=== PATIENT | female | born 1975 | race Caucasian/White ===

== ENCOUNTER 2017-01-04 18:35 | Emergency (ER) | payer OTHER ==
[2017-01-04 18:36] VITALS: BMI 30.6
[2017-01-04 19:30] LABS: HCG,QUALITATIVE URINE NEGATIVE (NEGATIVE)
[2017-01-04 19:33] LABS: SQUAMOUS EPITHIAL 4 /hpf (0-5); URINE BILIRUBIN NEGATIVE (NEGATIVE); URINE BLOOD 1+ (NEGATIVE); URINE CLARITY Clear (Clear); URINE COLOR Yellow (YELLOW); URINE GLUCOSE (UA) NORMAL (Normal); URINE LEUKOCYTE ESTERASE NEG Leu/uL (Negative); URINE NITRATE NEGATIVE (NEGATIVE); URINE PROTEIN NEGATIVE (NEGATIVE); URINE UROBILINOGEN NORMAL mg/dL (0.2-1.0)
[2017-01-04] MEDS ORDERED: Sodium Chloride 0.9% 1,000 ML IV ONE (19:44)
[2017-01-04] MEDS ORDERED: Iohexol 240 (50 ml) PO ONE (19:45)
--- NOTE | 2017-01-04 20:02 | C.PDOC ---
History Of Present Illness 41 year old female who presents to the ER with a complaint of intermittent abdominal pain that radiates to the back for the past 2 weeks, associated with dysuria. Patient denies vomiting, diarrhea, or fever. Chief Complaint (Nursing): Abdominal Pain History Per: Patient History/Exam Limitations: no limitations Onset/Duration Of Symptoms: Days Current Symptoms Are (Timing): Still Present Location Of Pain/Discomfort: RLQ Radiation Of Pain To:: None Quality Of Discomfort: Unable To Describe Associated Symptoms: Urinary Symptoms. denies: Fever, Chills, Vomiting, Diarrhea Exacerbating Factors: None Alleviating Factors: None Recent travel outside of the [place]: No Abnormal Vaginal Bleeding: No Past Medical History Reviewed: Historical Data, Nursing Documentation, Vital Signs Vital Signs: Last Vital Signs Temp 98.1 F 01/04/17 22:45 Pulse 60 01/04/17 22:45 Resp 16 01/04/17 22:45 BP 102/60 01/04/17 22:45 Pulse Ox 98 01/04/17 22:45 - Medical History PMH: Kidney Stones, Chronic Kidney Disease Surgical History: No Surg Hx - [facility] Procedures MANUAL ASSIST TIBURCIOIV NEC (05/23/13) Family History: States: Unknown Family Hx - Social History Hx Tobacco Use: No Hx Alcohol Use: No Hx Substance Use: No - Immunization History Hx Tetanus Toxoid Vaccination: Yes Hx Influenza Vaccination: No Hx Pneumococcal Vaccination: No Review Of Systems Constitutional: Negative for: Fever, Chills Gastrointestinal: Positive for: Abdominal Pain. Negative for: Vomiting, Diarrhea Genitourinary: Positive for: Dysuria Musculoskeletal: Positive for: Back Pain Physical Exam - Physical Exam Appears: Non-toxic Skin: Normal Color, Warm, Dry Head: Atraumatic, Normacephalic Oral Mucosa: Moist Chest: Symmetrical, No Tenderness Cardiovascular: Rhythm Regular, No Murmur Respiratory: Normal Breath Sounds, No Rales, No Rhonchi, No Wheezing Gastrointestinal/Abdominal: Soft, Tenderness (RLQ) Neurological/Psych: Oriented x3, Normal Speech, Normal Cognition ED Course And Treatment - Laboratory Results Result Diagrams: 01/04/17 20:17 01/04/17 20:17 O2 Sat by Pulse Oximetry: 99 (Room air) Pulse Ox Interpretation: Normal - CT Scan/US CT abd/pel Other Rad Studies (CT/US): Read By Radiologist, Radiology Report Reviewed CT/US Interpretation: EXAM: CT Abdomen and Pelvis With Intravenous Contrast. CLINICAL HISTORY: 41 years old, female; Pain; Abdominal pain; Localized; Right lower quadrant (rlq); Additional info: Abd pain. TECHNIQUE: Axial computed tomography images of the abdomen and pelvis with intravenous contrast. This CT. exam was performed using one or more of the following dose reduction techniques: automated. exposure control, adjustment of the mA and/or kV according to patient size, and/or use of iterative. reconstruction technique. Coronal and sagittal reformatted images were created and reviewed. CONTRAST: 100 mL of visipaque 320 administered intravenously. COMPARISON: CT - ABD PELVIS W/O PO OR IV CONT 04/23/2015 11:12:40 PM. FINDINGS: Lower thorax: There is minimal bibasilar atelectasis. The heart is borderline in size. Small hiatal. hernia. ABDOMEN: Liver: There are no focal liver lesions present. There is a diffuse decrease in hepatic parenchymal. density, consistent with fatty infiltration. Gallbladder and bile ducts: The gallbladder is contracted but otherwise normal. No calcified stones. No ductal dilation. Pancreas: The pancreas is normal. No ductal dilation. Spleen: The spleen is normal. Adrenals : The adrenal glands are normal. Kidneys and ureters: The kidneys are normal. No hydronephrosis. Stomach and bowel: The stomach is normal. Colonic constipation is present. There is no evidence. of intestinal obstruction. No mucosal thickening. Appendix: A normal appendix is identified. PELVIS: Bladder: The bladder is normal. Reproductive: There is a partially calcified fibroid within the right side of the uterus. The uterus. otherwise appears unremarkable. The ovaries are normal. ABDOMEN and PELVIS: Intraperitoneal space: There is no evidence of free intraperitoneal fluid. There is no free. intraperitoneal air. Bones/joints: No acute fracture. No dislocation. Soft tissues: Unremarkable. Vasculature: The aorta is normal. No abdominal aortic aneurysm. Lymph nodes: There is no evidence of lymphadenopathy. IMPRESSION: 1. No acute findings. 2. Normal appendix. 3. Additional incidental and/or chronic findings as described. Progress Note: CT abd/pel, blood work, and urinalysis ordered. IV fluids admininstered. Disposition Counseled Patient/Family Regarding: Diagnosis - Disposition Referrals: [facility] at [facility] [Outside] Disposition: HOME/ ROUTINE Disposition Time: 22:27 Condition: STABLE Prescriptions: Ibuprofen [Motrin] 1 tab PO TID PRN #30 tab PRN Reason: Pain Instructions: Uterine Fibroids (ED), Abdominal Pain (ED) Forms: [facility] (Danish), Gen Discharge Inst Burkinan Print Language: YI - POA Present On Arrival: None - Clinical Impression Clinical Impression: Abdominal pain, Uterine fibroid - Scribe Statement The provider has reviewed the documentation as recorded by the Scribmary Early All medical record entries made by the Chaniibmary were at my direction and personally dictated by me. I have reviewed the chart and agree that the record accurately reflects my personal performance of the history, physical exam, medical decision making, and the department course for this patient. I have also personally directed, reviewed, and agree with the discharge instructions and disposition.
[2017-01-04] MEDS ORDERED: Sodium Chloride 0.9% 1,000 ML ONE (20:20)
[2017-01-04] MEDS ORDERED: Iohexol 240 (50 ml) ONE (20:20)
[2017-01-04 20:21] LABS: BASO # 0.1 K/uL (0.0-0.2); BASO % 0.8 % (0.0-2.0); EOS # 0.2 K/uL (0.0-0.7); EOS % 3.3 % (0.0-4.0); HEMOGLOBIN 11.8 g/dL (11.0-16.0); LYMPH # 1.6 K/uL (1.0-4.3); LYMPH % 23.9 % (20.0-40.0); MEAN CELL VOLUME 85.7 fL (81.0-99.0); MEAN CORPUSCULAR HEMOGLOBIN 28.9 pg (27.0-31.0); MEAN CORPUSCULAR HGB CONC 33.7 g/dL (33.0-37.0); MEAN PLATELET VOLUME 9.8 fL (7.2-11.7); MONO # 0.5 K/uL (0.0-0.8); MONO % 7.8 % (0.0-10.0); NEUT # 4.3 K/uL (1.8-7.0); NEUT % 64.2 % (50.0-75.0); RBC 4.07 Mil/uL (3.80-5.20); RED CELL DISTRIBUTION WIDTH 14.8 % (11.5-14.5); WHITE BLOOD COUNT 6.7 K/uL (4.8-10.8)
[2017-01-04 20:29] LABS: ALBUMIN 3.5 g/dL (3.5-5.0)
[2017-01-04 20:32] LABS: ALB/GLOB RATIO 1.2 (1.0-2.1); ALT/SGPT 36 U/L (9-52); AST/SGOT 23 U/L (14-36); BLOOD UREA NITROGEN 11 mg/dL (7-17); GFR AFRICAN-AMERICAN > 60; GFR NON-AFRICAN AMERICAN > 60; LIPASE 56 U/L (23-300)
[2017-01-04 20:33] LABS: CALCIUM 8.4 mg/dl (8.6-10.4)
[2017-01-04 20:55] VITALS: RESP 16
[2017-01-04] MEDS ORDERED: Iodixanol 320 MG/ML 100 ML BOTTLE IV ONE (21:24)
--- NOTE | 2017-01-04 22:19 | CT ---
EXAM: CT Abdomen and Pelvis With Intravenous Contrast CLINICAL HISTORY: 41 years old, female; Pain; Abdominal pain; Localized; Right lower quadrant (rlq); Additional info: Abd pain TECHNIQUE: Axial computed tomography images of the abdomen and pelvis with intravenous contrast. This CT exam was performed using one or more of the following dose reduction techniques: automated exposure control, adjustment of the mA and/or kV according to patient size, and/or use of iterative reconstruction technique. Coronal and sagittal reformatted images were created and reviewed. CONTRAST: 100 mL of visipaque 320 administered intravenously. COMPARISON: CT - ABD PELVIS W/O PO OR IV CONT 04/23/2015 11:12:40 PM FINDINGS: Lower thorax: There is minimal bibasilar atelectasis. The heart is borderline in size. Small hiatal hernia. ABDOMEN: Liver: There are no focal liver lesions present. There is a diffuse decrease in hepatic parenchymal density, consistent with fatty infiltration. Gallbladder and bile ducts: The gallbladder is contracted but otherwise normal. No calcified stones. No ductal dilation. Pancreas: The pancreas is normal. No ductal dilation. Spleen: The spleen is normal. Adrenals: The adrenal glands are normal. Kidneys and ureters: The kidneys are normal. No hydronephrosis. Stomach and bowel: The stomach is normal. Colonic constipation is present. There is no evidence of intestinal obstruction. No mucosal thickening. Appendix: A normal appendix is identified. PELVIS: Bladder: The bladder is normal. Reproductive: There is a partially calcified fibroid within the right side of the uterus. The uterus otherwise appears unremarkable. The ovaries are normal. ABDOMEN and PELVIS: Intraperitoneal space: There is no evidence of free intraperitoneal fluid. There is no free intraperitoneal air. Bones/joints: No acute fracture. No dislocation. Soft tissues: Unremarkable. Vasculature: The aorta is normal. No abdominal aortic aneurysm. Lymph nodes: There is no evidence of lymphadenopathy. IMPRESSION: 1. No acute findings. 2. Normal appendix. 3. Additional incidental and/or chronic findings as described.
[2017-01-04 22:46] VITALS: BP 102/60; PULSE 60; TEMP 98.1
[2017-01-05 00:01] VITALS: O2SAT 99
== END 2017-01-04 22:53 | disposition home or self-care (01) ==
LOC: C.ER 18:35
DX: D25.9 Leiomyoma of uterus, unspecified (principal); R10.9 Unspecified abdominal pain
CPT/HCPCS: 74177; 80053; 81001; 83690; 84703; 85025; 96360; 96361; 99284; J7040; Q9966; Q9967

== ENCOUNTER 2017-01-29 17:39 | Emergency (ER) | payer OTHER ==
[2017-01-29 17:39] VITALS: BMI 30.6
[2017-01-29] MEDS ORDERED: Iohexol 240 (50 ml) PO ONE (18:22)
--- NOTE | 2017-01-29 18:35 | C.PDOC ---
History Of Present Illness 41 y/o female who presents to the ED complaining of right groin pain, ongoing for months but progressively worsening. Seen here on 01/04 for the same pain and had CT Abdomen/Pelvis that showed no acute disease. Patient was discharged and has been taking Tylenol for pain, with minimal relief. Pain worsens when she is standing for an extended time, and radiates down her leg. Now reports feeling nauseated. Denies diarrhea, vomiting, change in appetite, and bowel habits. States having occasional discomfort on urination, no foul-smelling urine. PMD: Unknown Time Seen by Provider: 01/29/17 17:52 Chief Complaint (Nursing): Abdominal Pain History Per: Patient History/Exam Limitations: no limitations Onset/Duration Of Symptoms: Days (x months) Current Symptoms Are (Timing): Worse Associated Symptoms: Nausea Past Medical History Reviewed: Historical Data, Nursing Documentation, Vital Signs Vital Signs: Last Vital Signs Temp 98.4 F 01/29/17 17:46 Pulse 59 L 01/29/17 17:46 Resp 15 01/29/17 17:46 BP 102/64 01/29/17 17:46 Pulse Ox 99 01/29/17 20:54 - Medical History PMH: Kidney Stones, Chronic Kidney Disease - [facility] Procedures MANUAL ASSIST DELIV NEC (05/23/13) Family History: States: Unknown Family Hx - Social History Hx Tobacco Use: No Hx Alcohol Use: No Hx Substance Use: No - Immunization History Hx Tetanus Toxoid Vaccination: Yes Hx Influenza Vaccination: No Hx Pneumococcal Vaccination: No Review Of Systems Except As Marked, All Systems Reviewed And Found Negative. Gastrointestinal: Positive for: Nausea, Other (Right groin pain, radiating down leg). Negative for: Vomiting (or change in appetite), Diarrhea, Constipation Genitourinary: Positive for: Other (occasional discomfort with urination) Physical Exam - Physical Exam Appears: Non-toxic, No Acute Distress Skin: Normal Color, Warm, Dry Head: Atraumatic, Normacephalic Eye(s): bilateral: Normal Inspection, PERRL, EOMI Oral Mucosa: Moist Neck: Normal ROM Chest: Symmetrical Cardiovascular: Rhythm Regular, No Murmur Respiratory: Normal Breath Sounds, No Accessory Muscle Use Gastrointestinal/Abdominal: Bowel Sounds (normal), Soft, Tenderness, Other ( Small hernia, very tender, in right inguinal area) Back: Normal Inspection, No Vertebral Tenderness Extremity: Bilateral: Atraumatic, Normal ROM Neurological/Psych: Oriented x3, Normal Speech ED Course And Treatment - Laboratory Results Result Diagrams: 01/29/17 18:38 01/29/17 18:38 Lab Interpretation: Normal O2 Sat by Pulse Oximetry: 99 (RA) Pulse Ox Interpretation: Normal Medical Decision Making Medical Decision Making: Time: 18:21 Plan: --CMP --CBC --Iohexol 50 ml IV --Beta HCG Quant --Urinalysis --Pending CT Pelvis w/ PO & IV contrast --Reevaluation Time: 20:42 CT Pelvis w/ PO & IV contrast FINDINGS: Bowel: There is a nonobstructed bowel gas pattern in the pelvis. Ileocecal region is unremarkable. Appendix and terminal ileum are unremarkable. There is sigmoid diverticulosis Appendix: See stomach and bowel Intraperitoneal space: There is no free air or free fluid. Bladder: unremarkable Reproductive: Uterus is anteflexed. There calcified uterine fibroids. There is a 2.4 cm dominant follicle in the right adnexa. Left adnexa is unremarkable. Bones/joints: There are no acute osseous abnormalities Soft tissues: There is a fat containing right inguinal hernia. There is no inflammation in herniated fat. Vasculature: Vascular structures are unremarkable. Lymph nodes: There is no pathologic adenopathy. IMPRESSION: Small fat-containing right inguinal hernia without inflammation; no appendicitis or diverticulitis; fibroid uterus and the colon dominant follicle in the right ovary Disposition Counseled Patient/Family Regarding: Studies Performed, Diagnosis, Need For Followup - Disposition Referrals: [facility] at [facility] [Outside] Disposition: HOME/ ROUTINE Disposition Time: 20:58 Condition: STABLE Instructions: Inguinal Hernia (ED) Forms: [employer] (Nigerien) Print Language: MACEDONIAN - Clinical Impression Clinical Impression: Inguinal hernia - Scribe Statement The provider has reviewed the documentation as recorded by the Scribe Bridget Doherty All medical record entries made by the Chaniibe were at my direction and personally dictated by me. I have reviewed the chart and agree that the record accurately reflects my personal performance of the history, physical exam, medical decision making, and the department course for this patient. I have also personally directed, reviewed, and agree with the discharge instructions and disposition.
[2017-01-29 18:42] LABS: BASO # 0.1 K/uL (0.0-0.2); BASO % 1.1 % (0.0-2.0); EOS # 0.3 K/uL (0.0-0.7); EOS % 3.8 % (0.0-4.0); HEMATOCRIT 37.1 % (34.0-47.0); LYMPH % 30.2 % (20.0-40.0); MEAN CELL VOLUME 85.6 fL (81.0-99.0); MEAN CORPUSCULAR HEMOGLOBIN 28.8 pg (27.0-31.0); MEAN CORPUSCULAR HGB CONC 33.6 g/dL (33.0-37.0); MEAN PLATELET VOLUME 9.8 fL (7.2-11.7); MONO # 0.5 K/uL (0.0-0.8); MONO % 6.9 % (0.0-10.0); NRBC % 0.1 % (0.0-2.0); RED CELL DISTRIBUTION WIDTH 14.2 % (11.5-14.5); WHITE BLOOD COUNT 6.7 K/uL (4.8-10.8)
[2017-01-29 18:44] VITALS: O2SAT 99
[2017-01-29 18:55] LABS: CHLORIDE 103 mmol/L (98-107); POTASSIUM 3.4 mmol/L (3.6-5.2); SODIUM 141 mmol/L (132-148)
[2017-01-29 18:57] LABS: AST/SGOT 19 U/L (14-36); BILIRUBIN,TOTAL 0.4 mg/dL (0.2-1.3); CARBON DIOXIDE 25 mmol/L (22-30); GFR AFRICAN-AMERICAN > 60
[2017-01-29 18:58] LABS: ALB/GLOB RATIO 1.1 (1.0-2.1); ALKALINE PHOSPHATASE 69 U/L (38-126); ALT/SGPT 28 U/L (9-52); BLOOD UREA NITROGEN 10 mg/dL (7-17); CALCIUM 8.7 mg/dl (8.6-10.4); GLUCOSE,RANDOM 81 mg/dL (65-105); TOTAL PROTEIN 6.8 g/dL (6.3-8.3)
[2017-01-29 18:59] LABS: RBC URINE 7 /hpf (0-3); URINE BILIRUBIN NEGATIVE (NEGATIVE); URINE BLOOD 2+ (NEGATIVE); URINE COLOR Yellow (YELLOW); URINE GLUCOSE (UA) NORMAL (Normal); URINE KETONE NEGATIVE (NEGATIVE); URINE LEUKOCYTE ESTERASE NEG Leu/uL (Negative); URINE PROTEIN NEGATIVE (NEGATIVE); URINE UROBILINOGEN NORMAL mg/dL (0.2-1.0); WBC URINE 2 /hpf (0-5)
[2017-01-29] MEDS ORDERED: Iodixanol 320 MG/ML 100 ML BOTTLE IV ONE (19:23)
--- NOTE | 2017-01-29 20:42 | CT ---
EXAM: CT Pelvis With Intravenous Contrast EXAM DATE/TIME: 01/29/2017 6:21 PM CLINICAL HISTORY: 41 years old, female; Pain; Pelvic pain; Additional info: Right groin pain R/O inguinal hernia TECHNIQUE: Axial computed tomography images of the pelvis with intravenous contrast. All CT scans at this facility use one or more dose reduction techniques, viz.: automated exposure control; ma/kV adjustment per patient size (including targeted exams where dose is matched to indication; i.e. head); or iterative reconstruction technique. Coronal and sagittal reformatted images were created and reviewed. CONTRAST: 100 mL of visipaque administered intravenously. COMPARISON: CT - ABD PELVIS PO IV CONTRAST 01/04/2017 9:33:44 PM FINDINGS: Bowel: There is a nonobstructed bowel gas pattern in the pelvis. Ileocecal region is unremarkable. Appendix and terminal ileum are unremarkable. There is sigmoid diverticulosis Appendix: See stomach and bowel Intraperitoneal space: There is no free air or free fluid. Bladder: unremarkable Reproductive: Uterus is anteflexed. There calcified uterine fibroids. There is a 2.4 cm dominant follicle in the right adnexa. Left adnexa is unremarkable. Bones/joints: There are no acute osseous abnormalities Soft tissues: There is a fat containing right inguinal hernia. There is no inflammation in herniated fat. Vasculature: Vascular structures are unremarkable. Lymph nodes: There is no pathologic adenopathy. IMPRESSION: Small fat-containing right inguinal hernia without inflammation; no appendicitis or diverticulitis; fibroid uterus and the colon dominant follicle in the right ovary
[2017-01-29 21:14] VITALS: BP 104/70; PULSE 58; RESP 18; TEMP 98.9
== END 2017-01-29 21:15 | disposition home or self-care (01) ==
LOC: C.ER 17:39
DX: K40.90 Unilateral inguinal hernia, without obstruction or gangrene, not specified as recurrent (principal)
CPT/HCPCS: 72193; 80053; 81001; 82948; 84703; 85025; 99285; Q9966; Q9967

== ENCOUNTER 2017-02-25 07:14 | Day surgery (SDC) | payer OTHER ==
[2017-02-24 07:23] VITALS: BMI 29.5
[2017-02-25] MEDS ORDERED: ceFAZolin IV 2 gm in Dextrose 1 GM/50 ML BAG IVPB ONE (09:36)
[2017-02-25] MEDS ORDERED: Bupivacaine-Epi 0.25%-1:200,000 PF Inj ONE (09:36)
[2017-02-25] MEDS ORDERED: Lidocaine 1% Inj (20ml) ONE (09:36)
[2017-02-25] MEDS ORDERED: Lactated Ringer's 1,000 ML IV ONE ×2 (10:05→12:05)
[2017-02-25] MEDS ORDERED: Propofol 10 mg/ml Inj (20 ML) ONE (10:12)
[2017-02-25] MEDS ORDERED: Midazolam 2 MG/2 ML VIAL ONE (10:12)
[2017-02-25] MEDS ORDERED: HYDROmorphone 0.5 mg/0.5 ml ISec IVP PRN ×2 (10:33→12:50)
[2017-02-25] MEDS ORDERED: Rocuronium 10 mg/ml (5 ml) ONE (10:41)
[2017-02-25] MEDS ORDERED: Bupivacaine HCl 0.5% PF (10 ml) Inj ONE ×2 (11:45)
[2017-02-25] MEDS ORDERED: Sodium Chloride 0.9% 20 ML IV ONE (12:05)
--- NOTE | 2017-02-25 12:39 | PCM.SURG1 ---
Surgeon's Initial Post Op Note - Surgeon's Notes Surgeon: Rose Billing Specialist: Mandi Boateng PGY1 Type of Anesthesia: General Endo Pre-Operative Diagnosis: R inguinal hernia Operative Findings: see operative report Post-Operative Diagnosis: R inguinal hernia Operation Performed: Laparoscopic TEP convert to open R inguinal hernia repair with mesh Specimen/Specimens Removed: N/A Estimated Blood Loss: EBL {In ML}: 10 Blood Products Given: N/A Drains Used: No Drains Post-Op Condition: Good Date of Surgery/Procedure: 02/25/17 Time of Surgery/Procedure: 12:37
--- NOTE | 2017-02-25 12:52 | PCM.ANESB5 ---
Transverse Abdominis Block - Transverse Abdominis Plane Date of Procedure: 02/25/17 Anesthesiologist: Naveed Pre-Procedure Diagnosis: Right inguinal hernia Post-Procedure Diagnosis: Right inguinal hernia Procedure Performed: Transverse Abdominis Plane Nerve Block Right - Procedure Transverse Abdominis Plane Nerve Block: The procedure was explained to the patient that it is for post-operative pain management and would be performed after surgery. Consent was obtained prior to surgery after a thorough discussion with the patient regarding the benefits and possible complications of transverse abdominis plane block. After the surgery had concluded and before the patient emerged from general anesthesia, time-out was held with the circulating nurse to re-confirm the appropriate block. With the patient in supine position, the ultrasound probe was placed transverse to the abdominal wall at the mid-axillary line above the iliac crest of the appropriate side. The skin, subcutaneous tissue, fat, external oblique muscle, internal oblique muscle, and the transverse abdominis muscle were identified. The general area of the block site was then prepped with Betadine three times. At this point, a # 21-gauge Stimuplex 4-inch needle was inserted posterior to and in plane with the ultrasound probe and directed anteriorly. Needle was advanced under direct ultrasound visualization until it reached the plane between the internal oblique and transverse abdominis muscles. After appropriate placement, 2mL of local anesthetic solution was injected. When the transverse abdominis plane was observed expanding in an ellipsoid way, the rest of the solution was slowly injected. A total of 20 mL of 0.25% bupivicaine was used for this block. The needle was then removed and sterile dressing was applied. The patient had stable vital signs throughout and had no untoward complications after emergence from general anesthesia in the recovery room.
[2017-02-25] MEDS ORDERED: Oxycodone/Acetaminophen 5/325 mg Tab PO PRN (14:29)
[2017-02-25 15:00] VITALS: PULSE 60; RESP 16
[2017-02-25 16:31] VITALS: BP 98/57; TEMP 98.7; O2SAT 99
--- NOTE | 2017-02-26 07:28 | OP ---
PROCEDURE DATE: 02/25/2017 PREOPERATIVE DIAGNOSIS: Right inguinal hernia. POSTOPERATIVE DIAGNOSIS: Right direct inguinal hernia. PROCEDURE DONE: 1. Laparoscopic converted to open right inguinal hernia repair with a mesh. 2. Exploratory laparoscopy. PROCEDURE DONE BY: Tim Rose MD SEAFOOD FISHERMAN: BENITO Weldon and Radha PGY-1 resident. TYPE OF ANESTHESIA: General endotracheal tube anesthesia. ESTIMATED BLOOD LOSS: Around 10 mL. DRAIN: None. PATHOLOGY: None. COMPLICATIONS: None. INTRAOPERATIVE FINDINGS: The patient had large direct right inguinal hernia, continue preperitoneal fat. On intraoperative steps, this 41-year-old female, who was diagnosed with right inguinal hernia and the patient was consented for the laparoscopic right inguinal hernia repair with the mesh, possible open, brought to the OR, placed supine on the operating table. After induction of the anesthesia, abdomen was prepped and draped in the usual sterile fashion. An infraumbilical transverse incision was made after incising the skin and subcutaneous tissue, the anterior rectus sheath was incised and retrorectus dissection was done. The balloon dissector was placed and 3 peritoneal space dissection was done. After the pneumo was created, the patient was found to have large rent into the peritoneum and now the exploratory laparoscopy was done. The patient found to have a right inguinal hernia and now procedure was converted to the open. The small 5-cm incision was made to in the right inguinal region. After incising the skin and subcutaneous tissue and the fascia, the external oblique aponeurosis was incised, upper and lower flap was created. The inguinal ligament was also identified. The patient was found to have direct inguinal hernia containing the defect of the floor and now the mesh plug was placed and mesh plug was sutured to the surrounding structure and the patch was placed and patch was sutured medially to the pubic symphysis. Superior conjoint tendon inferior to the inguinal ligament and laterally to the lateral abdominal wall and the round ligament was protected and after the proper reconstruction, external oblique aponeurosis was sutured with 0 Vicryl suture, subcu with 3-0 Vicryl, skin with a 4-0 Monocryl, and dry sterile dressing was applied. The postoperative TAP block was given to the patient by anesthesia. The patient tolerated the procedure well. Count of the instruments and gauze was correct. There was no apparent complication. Tim Rose MD [facility] # [id number] BARBARA
== END 2017-02-25 16:15 | disposition home or self-care (01) ==
LOC: C.SDS 07:14
PROVIDERS: ATTEND Surgery Surgical Critical Care
DX: K40.90 Unilateral inguinal hernia, without obstruction or gangrene, not specified as recurrent (principal); Z53.31 Laparoscopic surgical procedure converted to open procedure
CPT/HCPCS: 49505; 84703; J0690; J2001; J2250; J2704; J3010; J7120

== ENCOUNTER 2017-05-17 17:04 | Emergency (ER) | payer OTHER ==
[2017-05-17 17:37] VITALS: BMI 28.3
[2017-05-17] MEDS ORDERED: Sodium Chloride 0.9% 1,000 ML IV ONE (18:18)
[2017-05-17] MEDS ORDERED: Iohexol 240 (50 ml) PO STA (18:18)
[2017-05-17 18:22] LABS: RBC URINE 14 /hpf (0-3); URINE BILIRUBIN NEGATIVE (NEGATIVE); URINE BLOOD 2+ (NEGATIVE); URINE COLOR Yellow (YELLOW); URINE GLUCOSE (UA) NORMAL (Normal); URINE KETONE NEGATIVE (NEGATIVE); URINE LEUKOCYTE ESTERASE NEG Leu/uL (Negative); URINE PROTEIN NEGATIVE (NEGATIVE); URINE UROBILINOGEN NORMAL mg/dL (0.2-1.0); WBC URINE 1 /hpf (0-5)
[2017-05-17] MEDS ORDERED: Sodium Chloride 0.9% 1,000 ML ONE (18:45)
[2017-05-17] MEDS ORDERED: Iohexol 240 (50 ml) ONE (18:45)
[2017-05-17 18:48] LABS: BASO % 0.2 % (0.0-2.0); EOS # 0.5 K/uL (0.0-0.7); EOS % 4.7 % (0.0-4.0); HEMATOCRIT 38.7 % (34.0-47.0); LYMPH # 0.9 K/uL (1.0-4.3); LYMPH % 9.3 % (20.0-40.0); MEAN CELL VOLUME 87.2 fL (81.0-99.0); MEAN CORPUSCULAR HEMOGLOBIN 29.5 pg (27.0-31.0); MEAN CORPUSCULAR HGB CONC 33.8 g/dL (33.0-37.0); MEAN PLATELET VOLUME 9.6 fL (7.2-11.7); MONO # 0.5 K/uL (0.0-0.8); MONO % 5.2 % (0.0-10.0); PLATELET COUNT 259 K/uL (130-400); RED CELL DISTRIBUTION WIDTH 13.8 % (11.5-14.5); WHITE BLOOD COUNT 10.1 K/uL (4.8-10.8)
[2017-05-17 18:55] LABS: ALB/GLOB RATIO 1.4 (1.0-2.1); ALKALINE PHOSPHATASE 57 U/L (38-126); ALT/SGPT 43 U/L (9-52); AST/SGOT 23 U/L (14-36); BILIRUBIN,TOTAL 0.7 mg/dL (0.2-1.3); BLOOD UREA NITROGEN 13 mg/dL (7-17); CALCIUM 7.9 mg/dl (8.6-10.4); CARBON DIOXIDE 26 mmol/L (22-30); CHLORIDE 102 mmol/L (98-107); GFR AFRICAN-AMERICAN > 60; GLUCOSE,RANDOM 89 mg/dL (65-105); POTASSIUM 3.4 mmol/L (3.6-5.2); SODIUM 137 mmol/L (132-148); TOTAL PROTEIN 6.8 g/dL (6.3-8.3)
--- NOTE | 2017-05-17 19:00 | C.PDOC ---
History Of Present Illness Jillian Stevens is a 41 year old female, with a past medical history of kidney stones, who presents to the emergency department complaining of intermittent abdominal pain associated with non bloody vomiting and diarrhea onset for x3 days. Patient also reports a fever but denies any urinary symptoms. She describes the pain as sharp and crampy, and states it waxes and wanes. She had a recent hernia repair in February of this year. No further medical complaints. Note: Information was via translation secondary to Cambodian. PMD: None provided. Time Seen by Provider: 05/17/17 18:05 Chief Complaint (Nursing): Abdominal Pain History Per: Patient History/Exam Limitations: no limitations Onset/Duration Of Symptoms: Days (x3), Waxing/Waning Current Symptoms Are (Timing): Still Present Pain Scale Rating Of: 10 Location Of Pain/Discomfort: Diffuse Radiation Of Pain To:: None Quality Of Discomfort: Sharp, Cramping Associated Symptoms: Fever, Vomiting (non bloody), Diarrhea (non bloody). denies: Urinary Symptoms Last Menstral Period: May 10 Past Medical History Reviewed: Historical Data, Nursing Documentation, Vital Signs Vital Signs: Last Vital Signs Temp 98.4 F 05/17/17 20:22 Pulse 67 05/17/17 22:25 Resp 10 L 05/17/17 22:25 BP 105/62 05/17/17 22:25 Pulse Ox 95 05/17/17 22:25 - Medical History PMH: Kidney Stones (passed without intervention) Surgical History: Hernia Repair - [facility] Procedures MANUAL ASSIST DELIV NEC (05/23/13) Family History: States: Unknown Family Hx - Social History Hx Tobacco Use: No Hx Alcohol Use: No Hx Substance Use: No - Immunization History Hx Tetanus Toxoid Vaccination: No Hx Influenza Vaccination: No Hx Pneumococcal Vaccination: No Review Of Systems Except As Marked, All Systems Reviewed And Found Negative. Constitutional: Positive for: Fever Gastrointestinal: Positive for: Vomiting (non bloody), Abdominal Pain ( intermittent sharp cramp), Diarrhea (non bloody) Physical Exam - Physical Exam Appears: No Acute Distress Skin: Normal Color, Warm, Dry Head: Atraumatic, Normacephalic Eye(s): bilateral: Normal Inspection, PERRL, EOMI Neck: Normal, Normal ROM, Supple Cardiovascular: Rhythm Regular Respiratory: Normal Breath Sounds, No Accessory Muscle Use Gastrointestinal/Abdominal: Tenderness (diffused) Extremity: Normal ROM, No Deformity, No Swelling Neurological/Psych: Oriented x3, Normal Speech ED Course And Treatment - Laboratory Results Result Diagrams: 05/17/17 18:38 05/17/17 18:38 O2 Sat by Pulse Oximetry: 97 (RA) Pulse Ox Interpretation: Normal - CT Scan/US CT abd/pel Other Rad Studies (CT/US): Read By Radiologist, Radiology Report Reviewed CT/US Interpretation: IMPRESSION: No acute solid visceral or bowel abnormality; no CT findings of appendicitis or diverticulitis; fibroid uterus, nonobstructing right renal stone. Medical Decision Making Medical Decision Making: Initial Impression: abdominal pain Initial Plan: --Abd Pelvis PO & IV contrast [CT] --CBC w/ differential --Pepcid 20 mg IVP --Omnipaque 240 50 ml PO --Morphine 2 mg IVP --Zofran Inj 4 mg IVP --NS IV 1,000 ml @ 1,000 mls/hr --reevaluation On reevaluation, patient reports improvement of pain and feels comfortable going home. Diagnosis: Abdominal pain. Disposition Counseled Patient/Family Regarding: Studies Performed, Diagnosis, Need For Followup, Rx Given - Disposition Referrals: [facility] at [facility] [Outside] [facility] [Outside] Disposition: HOME/ ROUTINE Disposition Time: 22:21 Condition: IMPROVED Additional Instructions: follow up with your doctor in 2 days call to make an appointment take medications as needed for pain return to hospital if symptoms worsens or progress Prescriptions: Famotidine [Pepcid] 20 mg PO BID #20 tab Naproxen [Naprosyn] 500 mg PO BID PRN #16 tab PRN Reason: Pain, Moderate (4-7) Ondansetron ODT [Zofran ODT] 4 mg PO TID PRN #12 odt PRN Reason: Nausea/Vomiting Instructions: Abdominal Pain (ED) Forms: [employer] (Dominican), Gen Discharge Inst Cambodian, [employer] (Cambodian) Print Language: KISWAHILI - Clinical Impression Clinical Impression: Abdominal pain - Scribe Statement Beau Thompson Provider Attestation: All medical record entries made by the Scribe were at my direction and personally dictated by me. I have reviewed the chart and agree that the record accurately reflects my personal performance of the history, physical exam, medical decision making, and the department course for this patient. I have also personally directed, reviewed, and agree with the discharge instructions and disposition.
[2017-05-17 19:49] LABS: EOSINOPHIL 6 % (0-4); NEUTROPHIL 77 % (50-75); TOTAL CELLS COUNTED 100
[2017-05-17 20:23] VITALS: TEMP 98.4
[2017-05-17] MEDS ORDERED: Iohexol 300 100 ML IJ ONE (20:38)
[2017-05-17 21:42] VITALS: PULSE 67
[2017-05-17] MEDS ORDERED: Morphine 4 MG/ML VIAL IV STA (21:47)
[2017-05-17] MEDS ORDERED: Morphine 4 MG/ML VIAL ONE (21:52)
--- NOTE | 2017-05-17 22:10 | CT ---
EXAM: CT Abdomen and Pelvis With Intravenous Contrast EXAM DATE/TIME: 05/17/2017 6:19 PM CLINICAL HISTORY: 41 years old, female; Pain; Abdominal pain; Generalized; Additional info: Abd pain TECHNIQUE: Axial computed tomography images of the abdomen and pelvis with intravenous contrast. All CT scans at this facility use one or more dose reduction techniques, viz.: automated exposure control; ma/kV adjustment per patient size (including targeted exams where dose is matched to indication; i.e. head); or iterative reconstruction technique. Coronal and sagittal reformatted images were created and reviewed. CONTRAST: 100 mL of omnipaque 300 administered intravenously. COMPARISON: CT - PELVIS W/CONTRAST 2017-01-29 20:03 FINDINGS: Lower thorax: Heart size is normal. There is dependent atelectasis and scarring at the lung bases ABDOMEN: Liver: unremarkable Gallbladder and bile ducts: unremarkable Pancreas: unremarkable Spleen: unremarkable Adrenals: unremarkable Kidneys and ureters: There is a tiny nonobstructing right renal stone.Kidneys and ureters are otherwise unremarkable. Stomach and bowel: Stomach is partially distended with contrast and air. Rotation is normal. Small bowel is incompletely opacified with oral contrast. There is no obstruction. Ileocecal region is unremarkable. Appendix and terminal ileum are unremarkable. Colon is incompletely distended which limits evaluation. There is scattered diverticulosis Appendix: See stomach and bowel PELVIS: Bladder: unremarkable Reproductive: There is a partially calcified uterine fibroid. Adnexa are unremarkable. ABDOMEN and PELVIS: Intraperitoneal space: There is no free air or free fluid. Bones/joints: There are no acute osseous abnormalities. There is minimal degenerative change. There is sclerosis at the sacroiliac joints. Soft tissues: There is a very small fat containing umbilical hernia. Vasculature: Vascular structures are unremarkable. Lymph nodes: There is no pathologic adenopathy. IMPRESSION: No acute solid visceral or bowel abnormality; no CT findings of appendicitis or diverticulitis; fibroid uterus Additional findings as described above.
[2017-05-17 22:25] VITALS: BP 105/62; RESP 10
[2017-05-17 22:49] VITALS: O2SAT 97
== END 2017-05-17 22:50 | disposition home or self-care (01) ==
LOC: C.ER 17:04
DX: R10.9 Unspecified abdominal pain (principal)
CPT/HCPCS: 74177; 80053; 81001; 83690; 84703; 85025; 96374; 96375; 96376; 99285; J1885; J2270; J2405; J7040; Q9966; Q9967

== ENCOUNTER 2017-09-28 19:12 | Emergency (ER) | payer OTHER ==
[2017-09-28 19:14] VITALS: BMI 28.3
[2017-09-28 19:34] VITALS: TEMP 98; O2SAT 98
[2017-09-28 19:55] LABS: BASO # 0.1 K/uL (0.0-0.2); BASO % 1.2 % (0.0-2.0); EOS # 0.2 K/uL (0.0-0.7); EOS % 3.7 % (0.0-4.0); HEMOGLOBIN 12.7 g/dL (11.0-16.0); LYMPH % 29.6 % (20.0-40.0); MEAN CELL VOLUME 86.5 fL (81.0-99.0); MEAN CORPUSCULAR HEMOGLOBIN 29.6 pg (27.0-31.0); MEAN CORPUSCULAR HGB CONC 34.2 g/dL (33.0-37.0); MEAN PLATELET VOLUME 9.6 fL (7.2-11.7); MONO # 0.4 K/uL (0.0-0.8); MONO % 5.6 % (0.0-10.0); NEUT # 4.1 K/uL (1.8-7.0); NEUT % 59.9 % (50.0-75.0); RBC 4.27 Mil/uL (3.80-5.20); RED CELL DISTRIBUTION WIDTH 13.6 % (11.5-14.5); WHITE BLOOD COUNT 6.8 K/uL (4.8-10.8)
[2017-09-28 20:11] LABS: ALB/GLOB RATIO 1.1 (1.0-2.1); ALT/SGPT 21 U/L (9-52); AST/SGOT 25 U/L (14-36); BLOOD UREA NITROGEN 13 mg/dL (7-17); CALCIUM 8.7 mg/dl (8.6-10.4); GFR AFRICAN-AMERICAN > 60; GFR NON-AFRICAN AMERICAN > 60
[2017-09-28 21:08] VITALS: BP 121/68; PULSE 60; RESP 16
--- NOTE | 2017-09-29 01:12 | C.PDOC ---
History Of Present Illness 42 year old female presents to the ER with a complaint of intermittent sharp chest pain for the past several months that increases with movement of the left arm. Patient reports she does not have a PMD, any PMHx, or use of any medication. Patient also denies symptoms of SOB, fever, or cough. Chief Complaint (Nursing): Chest Pain History Per: Patient History/Exam Limitations: no limitations Onset/Duration Of Symptoms: Days, Intermittent Episodes Current Symptoms Are (Timing): Still Present Modifying Factors: None Exacerbating Factors: Movement (Left arm) Alleviating Factors: None Recent travel outside of the [place]: No Past Medical History Reviewed: Historical Data, Nursing Documentation, Vital Signs Vital Signs: Last Vital Signs Temp 98 F 09/28/17 19:29 Pulse 60 09/28/17 21:07 Resp 16 09/28/17 21:07 BP 121/68 09/28/17 21:07 Pulse Ox 98 09/29/17 01:21 - Medical History PMH: Kidney Stones (passed without intervention) Surgical History: Hernia Repair - [facility] Procedures MANUAL ASSIST DELIV NEC (05/23/13) Family History: States: Unknown Family Hx - Social History Hx Tobacco Use: No Hx Alcohol Use: No Hx Substance Use: No - Immunization History Hx Tetanus Toxoid Vaccination: No Hx Influenza Vaccination: No Hx Pneumococcal Vaccination: No Review Of Systems Constitutional: Negative for: Fever, Chills Cardiovascular: Positive for: Chest Pain. Negative for: Palpitations Respiratory: Negative for: Cough, Shortness of Breath Gastrointestinal: Negative for: Nausea, Vomiting Physical Exam - Physical Exam Appears: Non-toxic Skin: Normal Color, Warm, Dry Head: Atraumatic, Normacephalic Eye(s): bilateral: Normal Inspection Oral Mucosa: Moist Neck: Normal, Supple Chest: Symmetrical, No Tenderness Cardiovascular: Rhythm Regular Respiratory: Normal Breath Sounds, No Rales, No Rhonchi, No Wheezing Gastrointestinal/Abdominal: Soft, No Tenderness Neurological/Psych: Oriented x3, Normal Speech ED Course And Treatment - Laboratory Results Result Diagrams: 09/28/17 19:52 09/28/17 19:52 ECG: Interpreted By Me, Viewed By Me ECG Rhythm: Sinus Rhythm ECG Interpretation: Normal Interpretation Of ECG: Incomplete RBBB, normal axis. O2 Sat by Pulse Oximetry: 98 (Room air) Pulse Ox Interpretation: Normal - Radiology CXR: Interpreted by Me, Viewed By Me CXR Interpretation: Yes: No Acute Disease Progress Note: EKG, blood work, and CXR ordered. Disposition - Disposition Referrals: [facility] [Outside] [facility] [Outside] Disposition: HOME/ ROUTINE Disposition Time: 20:20 Condition: GOOD Additional Instructions: Thank you for letting us take care of you today. The emergency medical care you received today was directed at your acute symptoms. If you were prescribed any medication, please fill it and take as directed. It may take several days for your symptoms to resolve. Return to the Emergency Department if your symptoms worsen, do not improve, or if you have any other problems. Please contact your doctor or call one of the physicians/clinics you have been referred to that are listed on the Patient Visit Information form that is included in your discharge packet. Bring any paperwork you were given at discharge with you along with any medications you are taking to your follow up visit. Our treatment cannot replace ongoing medical care by a primary care provider (PCP) outside of the emergency department. Thank you for allowing the Critical access hospital team to be part of your care today. Follow up with the clinic in 3-5 days for re-evaluation and further management. Tosin por dejarnos atenderlo hoy. La atencin mdica de emergencia que recibi hoy estaba dirigida a bernadine sntomas agudos. Si le prescribieron algn medicamento, llnelo y tome segn las indicaciones. Bernadine sntomas pueden tardar varios smith en resolverse. Regrese al Departamento de Emergencia si bernadine s ntomas empeoran, no mejoran o si tiene algn otro problema. Comunquese con alejandro mdico o llame a deborah de los mdicos / clnicas a los que magana sido referido y que figura en el formulario de Informacin de visita del paciente que se incluye en alejandro paquete de neil. Traiga todos los documentos que recibi al momento del neil junto con los medicamentos que est tomando en alejandro visita de seguimiento. Nuestro tratamiento no puede reemplazar la atencin m dica en curso por parte de un proveedor de atencin primaria (PCP) fuera del departamento de emergencias. Tosin por permitir que el equipo de Critical access hospital sea parte de alejandro cuidado hoy. Skyla un seguimiento con la clnica en 3-5 smith para la reevaluacin y la administracin adicional. Prescriptions: Cyclobenzaprine [Cyclobenzaprine HCl] 10 mg PO Q8 PRN #20 tab PRN Reason: Muscle Spasm Instructions: Chest Pain That Is Not Caused by the Heart (DC) Forms: Gen Discharge Inst Vincentian, BBE (Vincentian) Print Language: MALTESE - Clinical Impression Clinical Impression: Non-cardiac chest pain - Scribe Statement The provider has reviewed the documentation as recorded by the Scribe Simeon Early All medical record entries made by the Scribe were at my direction and personally dictated by me. I have reviewed the chart and agree that the record accurately reflects my personal performance of the history, physical exam, medical decision making, and the department course for this patient. I have also personally directed, reviewed, and agree with the discharge instructions and disposition.
--- NOTE | 2017-09-29 07:21 | RAD ---
Chest x-ray single frontal view History: Chest pain. Comparison: None available. Findings: Mild venous congestion. Mild patchy increased markings at the lung bases. Heart size within normal limits. Degenerative changes in the spine and shoulders. Impression: Mild venous congestion. Mild patchy increased markings at the lung bases.
--- NOTE | 2017-09-30 13:16 | CARD ---
APPROVED REPORT EKG Measurement Heart [id number] <Conclusion> Normal sinus rhythm Incomplete right bundle branch block Borderline ECG
== END 2017-09-28 21:07 | disposition home or self-care (01) ==
LOC: C.ER 19:12
DX: R07.89 Other chest pain (principal)

== ENCOUNTER 2017-10-21 17:33 | Emergency (ER) | payer OTHER ==
[2017-10-21 17:33] VITALS: BMI 28.3
[2017-10-21 17:54] VITALS: RESP 16
--- NOTE | 2017-10-21 19:47 | C.PDOC ---
History Of Present Illness 42 year old female presents to the ER with a complaint of right ear pain and sore throat for the past 2 days, associated with subjective fever and body aches. Patient reports she took advil this morning with minimal relief. Denies cough, sick contact, or recent travel. Time Seen by Provider: 10/21/17 19:21 Chief Complaint (Nursing): ENT Problem History Per: Patient History/Exam Limitations: None Onset/Duration Of Symptoms: Days Current Symptoms Are (Timing): Still Present Quality (Mouth/Throat): Tenderness Symptoms Have Been: Continuous Past Medical History Reviewed: Historical Data, Nursing Documentation, Vital Signs Vital Signs: Last Vital Signs Temp 98 F 10/21/17 20:00 Pulse 89 10/21/17 20:00 Resp 16 10/21/17 20:00 BP 100/80 10/21/17 20:00 Pulse Ox 99 10/21/17 20:00 - Medical History PMH: Kidney Stones (passed without intervention) Surgical History: Hernia Repair - [facility] Procedures MANUAL ASSIST DELIV NEC (05/23/13) Family History: States: Unknown Family Hx - Social History Hx Tobacco Use: No Hx Alcohol Use: No Hx Substance Use: No - Immunization History Hx Tetanus Toxoid Vaccination: No Hx Influenza Vaccination: No Hx Pneumococcal Vaccination: No Review Of Systems Constitutional: Positive for: Fever (Subjective) ENT: Positive for: Ear Pain (Right), Throat Pain Respiratory: Negative for: Cough Musculoskeletal: Positive for: Other (body aches) Physical Exam - Physical Exam Appears: Non-toxic Skin: Normal Color, Warm, Dry Head: Atraumatic, Normacephalic Eye(s): bilateral: Normal Inspection Ear(s): Bilateral: Normal Nose: Normal Oral Mucosa: Moist Throat: Other (Enlarged tonsils with exudates) Neck: Normal, Supple Lymphatic: Adenopathy (Submandibular) Neurological/Psych: Oriented x3, Normal Speech ED Course And Treatment O2 Sat by Pulse Oximetry: 97 (Room air) Pulse Ox Interpretation: Normal Progress Note: Motrin administered. Patient is resting comfortably in the ER in no acute distress, vitals are stable, will discharge home with Rx and instructions to follow up with PMD or return if symptoms worsen. Disposition Counseled Patient/Family Regarding: Diagnosis, Need For Followup - Disposition Disposition: HOME/ ROUTINE Disposition Time: 19:45 Condition: STABLE Additional Instructions: Please follow up with PMD Gargle with warm water and salt Take medications as directed Return to ER if worse Prescriptions: Ibuprofen [Motrin] 600 mg PO Q6H #24 tab Penicillin VK [Penicillin VK Tab] 500 mg PO Q6H #28 tab Instructions: Strep Throat (DC) Forms: [facility] (Martiniquais) Print Language: GEORGIAN - Clinical Impression Clinical Impression: Pharyngitis - PA / ELECTRICAL HARDWARE ENGINEER / Resident Statement MD/DO has reviewed & agrees with the documentation as recorded. - Scribe Statement The provider has reviewed the documentation as recorded by the Scribmary Early All medical record entries made by the Micah were at my direction and personally dictated by me. I have reviewed the chart and agree that the record accurately reflects my personal performance of the history, physical exam, medical decision making, and the department course for this patient. I have also personally directed, reviewed, and agree with the discharge instructions and disposition.
[2017-10-21 20:01] VITALS: BP 100/80; PULSE 89; TEMP 98
[2017-10-21 21:26] VITALS: O2SAT 97
== END 2017-10-21 20:01 | disposition home or self-care (01) ==
LOC: C.ER 17:33
DX: J02.9 Acute pharyngitis, unspecified (principal)

== ENCOUNTER 2018-03-13 18:25 | Emergency (ER) | payer OTHER ==
[2018-03-13 18:25] VITALS: BMI 29.7
[2018-03-13 18:31] VITALS: BP 106/66; PULSE 81; RESP 16; TEMP 98.8; O2SAT 96
--- NOTE | 2018-03-13 20:02 | C.PDOC ---
History Of Present Illness 42 yo female come in for evaluation of left sided reproducible chest wall pain gradually developed for past few weeks. Pt reports, pain is localized over left lateral chest wall, worse with touching, movement. Otherwise, pt denies known direct trauma or injury, fever, chills, neck pain, CP, cough, dyspnea, palpitation, diaphoresis, wheezing, denies radiation of chest pain, abd. pain, N/v/D, denies any other active complaints. Time Seen by Provider: 03/13/18 19:29 Chief Complaint (Nursing): Upper Extremity Problem/Injury History Per: Patient Past Medical History Reviewed: Historical Data, Nursing Documentation, Vital Signs Vital Signs: Last Vital Signs Temp 98.8 F 03/13/18 18:29 Pulse 81 03/13/18 18:29 Resp 16 03/13/18 18:29 BP 106/66 03/13/18 18:29 Pulse Ox 96 03/13/18 18:29 - Medical History PMH: Kidney Stones (Passed without intervention), Chronic Kidney Disease Denies: CAD, Cardia Arrhythmia, Cardiac Aneurysm Surgical History: Hernia Repair - [facility] Procedures MANUAL ASSIST KRISTINE NEC (05/23/13) Family History: States: Unknown Family Hx - Social History Hx Tobacco Use: No Hx Alcohol Use: No Hx Substance Use: No - Immunization History Hx Tetanus Toxoid Vaccination: No Hx Influenza Vaccination: No Hx Pneumococcal Vaccination: No Review Of Systems Except As Marked, All Systems Reviewed And Found Negative. Constitutional: Negative for: Fever, Chills Eyes: Negative for: Vision Change ENT: Negative for: Ear Discharge, Nose Discharge Cardiovascular: Positive for: Other (Left sided chest wall pain). Negative for: Chest Pain, Palpitations, Orthopnea, Edema, Light Headedness Respiratory: Negative for: Cough, Shortness of Breath, Pleuritic Pain, Wheezing Gastrointestinal: Negative for: Nausea, Vomiting, Abdominal Pain, Diarrhea Genitourinary: Negative for: Dysuria, Incontinence Musculoskeletal: Negative for: Neck Pain, Back Pain Skin: Negative for: Rash Neurological: Negative for: Weakness, Numbness, Headache, Dizziness Physical Exam - Physical Exam Appears: Well, Non-toxic, No Acute Distress Skin: Normal Color, Warm, Dry, No Rash, No Ecchymosis Head: Normacephalic Eye(s): bilateral: PERRL Nose: No Flaring Oral Mucosa: Moist, No Drooling Throat: No Erythema Neck: Normal ROM, Trachea Midline, Supple Chest: Deformity, Tenderness (left sided lateral chest wall tenderness overlying 6-8 intercostal spaces. NO palpable defomrity, no skin changes.), No Ecchymosis, No Subcutaneous Emphysema Cardiovascular: Rhythm Regular, No Friction Rub, No Murmur, No JVD, Other ((-) carotid bruits B/L) Respiratory: No Decreased Breath Sounds, No Accessory Muscle Use, No Stridor, No Wheezing, No Plerual Rub Gastrointestinal/Abdominal: Soft, No Tenderness, No Distention, No Guarding Back: No CVA Tenderness Extremity: Normal ROM, No Pedal Edema, No Deformity, No Swelling Neurological/Psych: Oriented x3, Normal Speech, Normal Motor, Normal Sensation, Normal Reflexes ED Course And Treatment ECG: Interpreted By Me, Viewed By Me ECG Rhythm: Sinus Rhythm Interpretation Of ECG: SR@72/min, NAD, incomplete RBBB, no acute T wave or ST-T changes. O2 Sat by Pulse Oximetry: 96 Pulse Ox Interpretation: Normal - Radiology CXR: Interpreted by Me, Viewed By Me CXR Interpretation: Yes: No Acute Disease Progress Note: On re-eval, pt is afebrile, hemodynamicaly stable. Non-toxic. PulsEOx 96% RA. neck: Supple, (-) JVD, (-) carotid bruits B/L. Lungs: CTA B/L, BS equal B/L. CVS: (+)S1S2, reg, (-) murmur. Abd: benign, (-) guarding, (-) rebound. Back: (-) CVA tenderness. Neurologicaly intact. EKG, CXR review and appears without acute abnormalities. Pt has clinical findings c/w left sided chest wall pain, reproducible. Pt advised. Ref. to f/u with PMD in 2-3 days for re-eavl. return to ED if any worsening or new changes. Disposition Counseled Patient/Family Regarding: Studies Performed, Diagnosis, Need For Followup, Rx Given - Disposition Referrals: Kiesha Pinto MD [Staff Provider] - Disposition: HOME/ ROUTINE Disposition Time: 19:40 Condition: STABLE Additional Instructions: Light duty, avoid heavy lifting, pushing, etc for 1 week take medication as need for pain Follow up with PMD in 2-3 days for re-evaluation. return to ED if any worsening or new changes. Prescriptions: Methocarbamol [Robaxin] 500 mg PO TID #20 tab traMADol [Ultram] 50 mg PO TID #7 tab Instructions: Costochondritis Print Language: UZBEK - Clinical Impression Clinical Impression: Chest wall pain
--- NOTE | 2018-03-14 10:25 | RAD ---
HISTORY: Cough COMPARISON: Chest x-ray performed 02/03/18 TECHNIQUE: Chest PA and lateral FINDINGS: LUNGS: No focal consolidation. Please note that chest x-ray has limited sensitivity for the detection of pulmonary masses. PLEURA: No significant pleural effusion identified. No definite pneumothorax . CARDIOVASCULAR: Heart size appears within normal limits. OSSEOUS STRUCTURES: Degenerative changes of the spine. VISUALIZED UPPER ABDOMEN: Mild elevation of the right hemidiaphragm. OTHER FINDINGS: None. IMPRESSION: No focal consolidation, significant pleural effusion, or definite pneumothorax identified.
--- NOTE | 2018-03-15 08:06 | CARD ---
APPROVED REPORT Date of service: 03/13/2018 EKG Measurement Heart [id number] <Conclusion> Normal sinus rhythm Incomplete right bundle branch block Borderline ECG
== END 2018-03-13 20:12 | disposition home or self-care (01) ==
LOC: C.ER 18:25
DX: R07.89 Other chest pain (principal)

== ENCOUNTER 2018-05-02 22:56 | Emergency (ER) | payer OTHER ==
[2018-05-02 22:57] VITALS: BMI 29.7
[2018-05-02 23:19] VITALS: TEMP 98
[2018-05-02 23:43] LABS: SQUAMOUS EPITHIAL 4 /hpf (0-5); URINE BACTERIA RARE (<OCC); URINE BILIRUBIN NEGATIVE (NEGATIVE); URINE BLOOD NEGATIVE (NEGATIVE); URINE CLARITY Clear (Clear); URINE COLOR Yellow (YELLOW); URINE GLUCOSE (UA) NORMAL (Normal); URINE LEUKOCYTE ESTERASE NEG Leu/uL (Negative); URINE PROTEIN 1+ mg/dL (NEGATIVE)
[2018-05-02 23:52] LABS: HCG,QUALITATIVE URINE NEGATIVE (NEGATIVE)
[2018-05-03] MEDS ORDERED: Sodium Chloride 0.9% 500 ML IV ONE (00:05)
[2018-05-03] MEDS ORDERED: Sodium Chloride 0.9% 1,000 ML ONE (00:18)
[2018-05-03 00:30] LABS: BASO # 0.1 K/uL (0.0-0.2); BASO % 1.1 % (0.0-2.0); EOS # 0.4 K/uL (0.0-0.7); EOS % 4.9 % (0.0-4.0); HEMOGLOBIN 11.9 g/dL (11.0-16.0); LYMPH # 1.8 K/uL (1.0-4.3); LYMPH % 24.8 % (20.0-40.0); MEAN CELL VOLUME 87.4 fL (81.0-99.0); MEAN CORPUSCULAR HEMOGLOBIN 29.4 pg (27.0-31.0); MEAN CORPUSCULAR HGB CONC 33.7 g/dL (33.0-37.0); MEAN PLATELET VOLUME 9.8 fL (7.2-11.7); MONO # 0.5 K/uL (0.0-0.8); MONO % 6.7 % (0.0-10.0); NEUT # 4.6 K/uL (1.8-7.0); NEUT % 62.5 % (50.0-75.0); RBC 4.06 Mil/uL (3.80-5.20); RED CELL DISTRIBUTION WIDTH 13.8 % (11.5-14.5); WHITE BLOOD COUNT 7.4 K/uL (4.8-10.8)
[2018-05-03] MEDS ORDERED: Iohexol 350mg/ml 100 ML ONE (00:43)
[2018-05-03 00:53] LABS: ALB/GLOB RATIO 1.2 (1.0-2.1); ALBUMIN 3.8 g/dL (3.5-5.0); ALT/SGPT 19 U/L (9-52); AST/SGOT 21 U/L (14-36); BLOOD UREA NITROGEN 11 mg/dL (7-17); CALCIUM 8.6 mg/dl (8.6-10.4); GFR NON-AFRICAN AMERICAN > 60; LIPASE 54 U/L (23-300)
--- NOTE | 2018-05-03 02:04 | C.PDOC ---
History Of Present Illness 42 year old female presents to the ER with a complaint of diffuse abdominal pain for the past 4 days that worsened today and is associated with nausea, chills, and subjective fever. Denies vomiting, back pain, UTI symptoms, vaginal b leeding, vaginal discharge, sick contact, or recent travel. Time Seen by Provider: 05/02/18 23:29 Chief Complaint (Nursing): Abdominal Pain History Per: Patient History/Exam Limitations: no limitations Onset/Duration Of Symptoms: Days Current Symptoms Are (Timing): Still Present Location Of Pain/Discomfort: Diffuse Associated Symptoms: Fever (Subjective), Chills, Nausea. denies: Back Pain, Urinary Symptoms, Other (Vaginal bleeding, Vaginal discharge) Exacerbating Factors: None Alleviating Factors: None Recent travel outside of the [place]: No Abnormal Vaginal Bleeding: No Past Medical History Reviewed: Historical Data, Nursing Documentation, Vital Signs Vital Signs: Last Vital Signs Temp 98 F 05/02/18 23:13 Pulse 75 05/02/18 23:13 Resp 20 05/02/18 23:13 BP 102/66 05/02/18 23:13 Pulse Ox 96 05/02/18 23:13 - Medical History PMH: Kidney Stones (Passed without intervention), Chronic Kidney Disease Denies: CAD, Cardia Arrhythmia, Cardiac Aneurysm Surgical History: Hernia Repair - [facility] Procedures MANUAL ASSIST KRISTINE NEC (05/23/13) Family History: States: Unknown Family Hx - Social History Hx Tobacco Use: No Hx Alcohol Use: No Hx Substance Use: No - Immunization History Hx Tetanus Toxoid Vaccination: No Hx Influenza Vaccination: No Hx Pneumococcal Vaccination: No Review Of Systems Constitutional: Positive for: Fever (Subjective), Chills Cardiovascular: Negative for: Chest Pain, Palpitations Respiratory: Negative for: Cough, Shortness of Breath Gastrointestinal: Positive for: Nausea, Abdominal Pain Genitourinary: Negative for: Dysuria, Hematuria, Vaginal Discharge, Vaginal Bleeding Musculoskeletal: Negative for: Back Pain Physical Exam - Physical Exam Appears: Non-toxic Skin: Normal Color, Warm, Dry Head: Atraumatic, Normacephalic Eye(s): bilateral: Normal Inspection Oral Mucosa: Moist Neck: Normal, No Midline Cervical Tenderness, No Paracervical Tenderness, Supple Chest: Symmetrical, No Tenderness Cardiovascular: Rhythm Regular Respiratory: Normal Breath Sounds, No Rales, No Rhonchi, No Wheezing Gastrointestinal/Abdominal: Soft, Tenderness (Mild diffuse), No Guarding, No Rebound, Other (Right suprapubic scar s/p right inguinal surgery) Back: No CVA Tenderness Neurological/Psych: Oriented x3, Normal Speech ED Course And Treatment - Laboratory Results Result Diagrams: 05/03/18 00:23 05/03/18 00:23 O2 Sat by Pulse Oximetry: 96 (Room air) Pulse Ox Interpretation: Normal - CT Scan/US CT abd/pel Other Rad Studies (CT/US): Read By Radiologist, Radiology Report Reviewed CT/US Interpretation: CT SCAN OF THE ABDOMEN AND PELVIS WITH CONTRAST. CLINICAL HISTORY: Abdominal pain. TECHNIQUE: Multiple axial and coronal CT images were obtained through the abdomen and pelvis after administration of intravenous contrast material. COMPARISON: 05/17/2017. COMMENTS: Uncomplicated colonic diverticulosis, unchanged. 3.2 cm calcified uterine fibroid is noted. Significant food residue in the distended stomach, probably gastroparesis. The liver is of uniform attenuation without mass or defect. There is no intra or extrahepatic biliary ductal dilatation. The spleen is normal. The gallbladder is within normal limits. The pancreas is of normal contour and attenuation characteristics. There is no evidence of adrenal mass. Both kidneys demonstrate prompt and equal nephrograms. The kidneys are normal in size, shape and configuration. There is no evidence of renal or ureteral mass. No renal or ureteral calculi are identified. There is no hydroureter or hydronephrosis. No evidence for appendicitis. There is no bowel wall thickening. No evidence for small or large bowel obstruction. There is no evidence of abdominal ascites or lymphadenopathy. There is no evidence of intrinsic or extrinsic bladder mass. There is no pelvic ascites or lymphadenopathy. Images of the lung bases show no evidence of pleural or parenchymal mass. There are no pleural effusions. The bony structures are free of lytic or blastic lesions. IMPRESSION: Uncomplicated colonic diverticulosis, unchanged. 3.2 cm calcified uterine fibroid is noted. Significant food residue in the distended stomach, probably gastroparesis. No evidence of acute abdominal or pelvic pathology. Progress Note: CT abd/pel, blood work, and urinalysis ordered, results were negative. IV fluids, toradol, and zofran administered. On reevaluation, patient is resting comfortably in the ER in no acute distress, afebrile, vitals are stable, will discharge home with Rx and instructions to follow up with PMD or return if symptoms worsen. Disposition Counseled Patient/Family Regarding: Diagnosis, Need For Followup, Rx Given - Disposition Referrals: [facility] [Outside] Disposition: HOME/ ROUTINE Disposition Time: 02:39 Condition: STABLE Additional Instructions: Sigue en clinica Milagros las medicinas Regresa si peor Prescriptions: Aluminum Hydroxide/Magnesium H [Maalox 30 ml] 30 ml PO TID #100 ml Famotidine [Pepcid] 20 mg PO DAILY #14 tab traMADol [Ultram] 50 mg PO TID #15 tab Instructions: Acute Abdomen (Belly Pain), Adult (DC) Forms: [employer] (Algerian) Print Language: CYMRO - Clinical Impression Clinical Impression: Uterine fibroid, Abdominal pain - PA / CHEF GERMAN / Resident Statement MD/DO has reviewed & agrees with the documentation as recorded. - Scribe Statement The provider has reviewed the documentation as recorded by the Scribmary Early All medical record entries made by the Scribe were at my direction and p ersonally dictated by me. I have reviewed the chart and agree that the record accurately reflects my personal performance of the history, physical exam, medical decision making, and the department course for this patient. I have also personally directed, reviewed, and agree with the discharge instructions and disposition.
[2018-05-03 03:18] VITALS: BP 108/72; PULSE 80; RESP 20; O2SAT 99
--- NOTE | 2018-05-03 08:36 | CT ---
Date of service: 05/03/2018 PROCEDURE: CT Abdomen and Pelvis with intravenous contrast HISTORY: Diffuse abdominal pain COMPARISON: 05/17/2017 TECHNIQUE: Multiple contiguous axial images were performed the through the abdomen and pelvis with the use of intravenous contrast. Subsequently, sagittal and coronal reformatted images were obtained. Radiation dose: Total exam DLP = 464.24 mGy-cm. This CT exam was performed using one or more of the following dose reduction techniques: Automated exposure control, adjustment of the mA and/or kV according to patient size, and/or use of iterative reconstruction technique. FINDINGS: LOWER THORAX: Scattered atelectasis at the lung bases LIVER: Unremarkable. No gross lesion or ductal dilatation. GALLBLADDER AND BILE DUCTS: Contracted gallbladder. PANCREAS: Unremarkable. No gross lesion or ductal dilatation. SPLEEN: Unremarkable. ADRENALS: Unremarkable. No mass. KIDNEYS AND URETERS: Unremarkable. No hydronephrosis. No solid mass. VASCULATURE: Unremarkable. No aortic aneurysm. No aortic atherosclerotic calcification or mural plaque present. BOWEL: Fecal retention in the colon. Colonic diverticulosis. Significant food residue in the distended stomach, possibly gastroparesis. APPENDIX: Grossly preserved. 6.3 millimeters in width. No gross adjacent fat stranding or fluid. PERITONEUM: Unremarkable. No free fluid. No free air. LYMPH NODES: Unremarkable. No enlarged lymph nodes. BLADDER: Bulky heterogeneous uterus with partially calcified fibroid lesion measuring 2.6 centimeters. REPRODUCTIVE: Unremarkable. BONES: Mild sclerosis of the bilateral SI joints. OTHER FINDINGS: None. IMPRESSION: Fecal retention in the colon. Colonic diverticulosis. Significant food residue in the distended stomach, possibly gastroparesis. Bulky heterogeneous uterus with partially calcified fibroid lesion measuring 2.6 centimeters. Additional findings as above. A preliminary report was generated at 2:21 a.m. on 05/03/[address] Aden Arvizu from [facility].
== END 2018-05-03 03:16 | disposition home or self-care (01) ==
LOC: C.ER 22:56
DX: D25.9 Leiomyoma of uterus, unspecified (principal); R10.9 Unspecified abdominal pain
CPT/HCPCS: 74177; 80053; 81001; 83690; 84703; 85025; 96374; 96375; 99284; J1885; J2405; J7040; Q9967

== ENCOUNTER 2018-08-23 09:25 | Emergency (ER) | payer OTHER ==
[2018-08-23 09:25] VITALS: BMI 29.7
[2018-08-23 09:43] VITALS: RESP 18; TEMP 98
--- NOTE | 2018-08-23 10:55 | C.PDOC ---
History Of Present Illness 43 y/o female presents to the ED for evaluation of lower abdominal cramping developed yesterday, associated with scant bloody vaginal discharge. Patient reports she only notices the bleeding when wiping. Denies any other active complaints. + care. LMP was 05/23/18. Patient reports current is normal. Otherwise she denies any fevers, chills, or UTI symptoms. Time Seen by Provider: 08/23/18 09:45 Chief Complaint (Nursing): Female Genitourinary History Per: Patient History/Exam Limitations: no limitations Onset/Duration Of Symptoms: Days (x 2) Current Symptoms Are (Timing): Still Present Severity: Mild Location Of Pain/Discomfort: Suprapubic Quality Of Discomfort: Cramping Abnormal Vaginal Bleeding: Yes : 4 Para: 3 Past Medical History Reviewed: Historical Data, Nursing Documentation, Vital Signs Vital Signs: Last Vital Signs Temp 98 F 08/23/18 09:37 Pulse 69 08/23/18 09:37 Resp 18 08/23/18 09:37 BP 105/67 08/23/18 09:37 Pulse Ox 97 08/23/18 09:37 - Medical History PMH: Kidney Stones (Passed without intervention), Chronic Kidney Disease Denies: CAD, Cardia Arrhythmia, Cardiac Aneurysm Surgical History: Hernia Repair - [facility] Procedures MANUAL ASSIST TIBURCIOIV NEC (05/23/13) Family History: States: Unknown Family Hx - Social History Hx Tobacco Use: No Hx Alcohol Use: No Hx Substance Use: No - Immunization History Hx Tetanus Toxoid Vaccination: No Hx Influenza Vaccination: No Hx Pneumococcal Vaccination: No Review Of Systems Except As Marked, All Systems Reviewed And Found Negative. Constitutional: Negative for: Fever, Chills Cardiovascular: Negative for: Chest Pain Respiratory: Negative for: Shortness of Breath Gastrointestinal: Positive for: Abdominal Pain. Negative for: Nausea, Vomiting, Diarrhea Genitourinary: Positive for: Vaginal Bleeding (scant bloody discharge). Negative for: Dysuria, Frequency Neurological: Negative for: Weakness, Dizziness Physical Exam - Physical Exam Appears: Well, Non-toxic, No Acute Distress Skin: Normal Color, Warm, No Rash Head: Normacephalic Eye(s): bilateral: PERRL Oral Mucosa: Moist Neck: Trachea Midline, No Midline Cervical Tenderness, Supple Chest: Symmetrical Cardiovascular: Rhythm Regular, No Murmur Respiratory: Normal Breath Sounds, No Rales, No Rhonchi, No Wheezing Gastrointestinal/Abdominal: Bowel Sounds (normal), Soft, No Tenderness, No Distention, No Guarding Back: No CVA Tenderness Extremity: Normal ROM, No Deformity, No Swelling Pulses: Left Dorsalis Pedis: Normal, Right Dorsalis Pedis: Normal Neurological/Psych: Oriented x3, Normal Speech, Normal Cranial Nerves, Normal Motor, Normal Sensation Gait: Steady ED Course And Treatment - Laboratory Results Result Diagrams: 08/23/18 11:03 Lab Interpretation: No Acute Changes Urine POC: Positive O2 Sat by Pulse Oximetry: 97 (on RA) Pulse Ox Interpretation: Normal - CT Scan/US OB US Other Rad Studies (CT/US): Radiology Report Reviewed CT/US Interpretation: Creator : Pat Sawant MD. Dictator : Pat Sawant MD. Nurse Advocate : Trust Operations Assistant : Pat Sawant MD. Approver2 : Re port Date : 08/23/2018 12:56:40. My Comment : . Date of service: 08/23/2018. Indication: , vag bleeding. Comparison: None available. Technique: Real-time transabdominal pelvic ultrasound was performed. In addition a transvaginal pelvic ultrasound was necessary to better depict pelvic anatomy. Findings: The uterus measures approximately 8.6 x 7.2 x 6.9 cm. Retroverted. 1.7 x 1.7 x 2.5 cm mid uterine fibroid with calcifications. Cervix length measures approximately 3.5 cm. The gestational sac measures 1.6 cm and is compatible with a gestational age of 5 weeks 6 days. Suspect presence of 2 yolk sacs measuring approximately 2 mm each. No evidence of pole at this time. The right ovary measures 2.6 x 2.0 x 2.6 cm and contains evidence of 1.1 cm complex cyst. The left ovary measures 1.7 cm complex cyst. Blood flow was demonstrated to both ovaries. Impression: Evidence of intrauterine gestational sac compatible with gestational age 5 weeks 6 days. Suspect presence of 2 yolk sacs measuring approximately 2 mm each. No evidence of pole at this time. Recommend clinical correlation including quantitative beta HCG and follow-up as indicated. 1.1 cm right and 1.7 cm left complex cysts. Evidence of 1.7 x 1.7 x 2.5 cm mid uterine fibroid with calcifications. Advise an anomaly screen at 16- 18 weeks gestational age Progress Note: Ordered basic blood work, UA, and /OB ultrasound. Ordered basic blood work, UA, and Pelvic/Transvag ultrasound. Pt was OBS in ED for 3 hours and remained tsable. On re-eval, afebrile, hemodynamicaly stable. Non-toxic. Abd: benign, (-) guarding, (-) rebound. Back: (-) CVA tenderness. US results review : Evidence of intrauterine gestational sac compatible with gestational age 5 weeks 6 days. Suspect presence of 2 yolk sacs measuring approximately 2 mm each. No evidence of pole at this time. quantitative beta HCG review and c/w US results. Pt advised to F/U with OB in 2 days to repeat beta quant or return to ED for it, return at any time if any worsening or new changes. pt understand, stable for discharge now. Disposition Counseled Patient/Family Regarding: Studies Performed, Diagnosis, Need For Followup - Disposition [facility]errals[facility] [Outside] Disposition: HOME/ ROUTINE Disposition Time: 12:45 Condition: STABLE Additional Instructions: " Pelvic rest", avoid sexual activity for 1 week, no heavy lifting, etc Follow up with OB in 2 days to repeat beta quant and re-eval or if unable to see OB, return to ED for blood test Return to Ed at any time if any worsening or new changes. Instructions: Threatened Miscarriage Forms: [facility] (Slovak) Print Language: TURKISH - Clinical Impression Clinical Impression: Threatened - PA / VOCATIONAL REHABILITATION SPECIALIST / Resident Statement MD/DO has reviewed & agrees with the documentation as recorded. - Scribe Statement The provider has reviewed the documentation as recorded by the Micah Doherty All medical record entries made by the Chaniibe were at my direction and personally dictated by me. I have reviewed the chart and agree that the record accurately reflects my personal performance of the history, physical exam, medical decision making, and the department course for this patient. I have also personally directed, reviewed, and agree with the discharge instructions and disposition.
[2018-08-23 11:09] LABS: HCG,QUALITATIVE URINE POSITIVE (NEGATIVE)
[2018-08-23 11:12] LABS: BASO % 0.7 % (0.0-2.0); EOS # 0.2 K/uL (0.0-0.7); EOS % 3.5 % (0.0-4.0); HEMOGLOBIN 12.7 g/dL (11.0-16.0); LYMPH # 1.5 K/uL (1.0-4.3); LYMPH % 28.1 % (20.0-40.0); MEAN CELL VOLUME 89.2 fL (81.0-99.0); MEAN CORPUSCULAR HEMOGLOBIN 30.2 pg (27.0-31.0); MEAN CORPUSCULAR HGB CONC 33.9 g/dL (33.0-37.0); MEAN PLATELET VOLUME 9.3 fL (7.2-11.7); MONO # 0.4 K/uL (0.0-0.8); MONO % 6.9 % (0.0-10.0); NEUT # 3.2 K/uL (1.8-7.0); NEUT % 60.8 % (50.0-75.0); NRBC % 0.1 % (0.0-2.0); RBC 4.2 Mil/uL (3.80-5.20); RED CELL DISTRIBUTION WIDTH 13.9 % (11.5-14.5); WHITE BLOOD COUNT 5.2 K/uL (4.8-10.8)
[2018-08-23 11:15] LABS: SQUAMOUS EPITHIAL 1 /hpf (0-5); URINE BILIRUBIN NEGATIVE (NEGATIVE); URINE BLOOD 2+ (NEGATIVE); URINE CLARITY Clear (Clear); URINE COLOR Yellow (YELLOW); URINE GLUCOSE (UA) NORMAL (Normal); URINE LEUKOCYTE ESTERASE NEG Leu/uL (Negative); URINE PROTEIN NEGATIVE (NEGATIVE); URINE UROBILINOGEN NORMAL mg/dL (0.2-1.0)
--- NOTE | 2018-08-23 13:01 | US ---
Date of service: 08/23/2018 Indication: , vag bleeding Comparison: None available Technique: Real-time transabdominal pelvic ultrasound was performed. In addition a transvaginal pelvic ultrasound was necessary to better depict pelvic anatomy. Findings: The uterus measures approximately 8.6 x 7.2 x 6.9 cm. Retroverted. 1.7 x 1.7 x 2.5 cm mid uterine fibroid with calcifications. Cervix length measures approximately 3.5 cm. The gestational sac measures 1.6 cm and is compatible with a gestational age of 5 weeks 6 days. Suspect presence of 2 yolk sacs measuring approximately 2 mm each. No evidence of pole at this time. The right ovary measures 2.6 x 2.0 x 2.6 cm and contains evidence of 1.1 cm complex cyst. The left ovary measures 1.7 cm complex cyst. Blood flow was demonstrated to both ovaries. Impression: Evidence of intrauterine gestational sac compatible with gestational age 5 weeks 6 days. Suspect presence of 2 yolk sacs measuring approximately 2 mm each. No evidence of pole at this time. Recommend clinical correlation including quantitative beta HCG and follow-up as indicated. 1.1 cm right and 1.7 cm left complex cysts. Evidence of 1.7 x 1.7 x 2.5 cm mid uterine fibroid with calcifications. Advise an anomaly screen at 16-18 weeks gestational age
[2018-08-23 14:07] VITALS: BP 105/64; PULSE 86
[2018-08-23 17:46] VITALS: O2SAT 97
== END 2018-08-23 14:06 | disposition home or self-care (01) ==
LOC: C.ER 09:25
DX: O20.0 Threatened abortion (principal); Z3A.01 Less than 8 weeks gestation of pregnancy

== ENCOUNTER 2018-08-25 13:48 | Emergency (ER) | payer OTHER ==
[2018-08-25 13:48] VITALS: BMI 29.7
[2018-08-25 14:31] VITALS: TEMP 98.1
[2018-08-25 14:50] LABS: BASO # 0.1 K/uL (0.0-0.2); BASO % 0.9 % (0.0-2.0); EOS # 0.2 K/uL (0.0-0.7); EOS % 2.8 % (0.0-4.0); MEAN CELL VOLUME 90.1 fL (81.0-99.0); MEAN CORPUSCULAR HEMOGLOBIN 30.4 pg (27.0-31.0); MEAN CORPUSCULAR HGB CONC 33.7 g/dL (33.0-37.0); MEAN PLATELET VOLUME 9.5 fL (7.2-11.7); MONO # 0.5 K/uL (0.0-0.8); MONO % 5.8 % (0.0-10.0); NEUT # 5.9 K/uL (1.8-7.0); NEUT % 67.5 % (50.0-75.0); NRBC % 0.1 % (0.0-2.0); RBC 4.26 Mil/uL (3.80-5.20); RED CELL DISTRIBUTION WIDTH 14.2 % (11.5-14.5)
[2018-08-25 14:51] LABS: WHITE BLOOD COUNT 8.7 K/uL (4.8-10.8)
[2018-08-25 15:14] LABS: ALB/GLOB RATIO 1.4 (1.0-2.1); ALBUMIN 4.4 g/dL (3.5-5.0); ALT/SGPT 13 U/L (9-52); AST/SGOT 28 U/L (14-36); BLOOD UREA NITROGEN 10 mg/dL (7-17); CALCIUM 9.3 mg/dl (8.6-10.4); GFR NON-AFRICAN AMERICAN > 60
[2018-08-25 15:30] LABS: SQUAMOUS EPITHIAL 3 /hpf (0-5); URINE BILIRUBIN NEGATIVE (NEGATIVE); URINE BLOOD 3+ (NEGATIVE); URINE CLARITY Hazy (Clear); URINE COLOR Yellow (YELLOW); URINE GLUCOSE (UA) NORMAL (Normal); URINE LEUKOCYTE ESTERASE NEG Leu/uL (Negative); URINE PROTEIN NEGATIVE (NEGATIVE); URINE UROBILINOGEN NORMAL mg/dL (0.2-1.0)
--- NOTE | 2018-08-25 16:15 | US ---
Date of service: 08/25/2018 PROCEDURE: OB Pelvic Ultrasound HISTORY: vaginal bleeding COMPARISON: 08/23/2018. FINDINGS: UTERUS: Single intrauterine gestation. Gestational sac diameter measures 1.96 cm corresponding to 6 weeks and 3 days of gestational age. Again 2 yolk sacs are visualized measuring 2 mm each however no pole is identified on the current examination. age (Ultrasound estimated): 6 weeks and 3 days Date of delivery (Ultrasound estimated) : 04/17/2019 Pao-gestational hemorrhage: There is a 8 x 3 x 6 mm subchorionic hemorrhage. Uterus measures 8.9 x 6.2 x 6.0 cm. There is a 1.9 x 1.8 x 2.1 cm intramural posterior wall calcified fibroid in the lower uterine segment. CERVIX: Long and closed. No cervical abnormality seen. RIGHT OVARY: Measures 2.8 x 2.1 x 2.9 cm. No mass. Normal flow. 1.4 x 1.1 x 1.4 cm cyst. LEFT OVARY: Measures 0.8 x 2.1 x 2.3 cm. No mass. Normal flow. There is a 1.7 x 1.1 x 1.4 cm corpus luteum cyst. FREE FLUID: None. OTHER FINDINGS: None. IMPRESSION: Single intrauterine gestational sac with mean gestational age of 6 weeks and 3 days. Two yolk sacs are again visualized measuring 2 mm each however no pole is identified on the current examination. Clinical and ultrasound follow-up follow-up and correlation with serial beta HCG levels is advised.
[2018-08-25 16:48] VITALS: BP 108/67; PULSE 68; RESP 20; O2SAT 97
--- NOTE | 2018-08-25 17:02 | C.PDOC ---
History Of Present Illness 43 yo female return to ED for evaluation of vaginal bleeding associated with low abdominal pain developed since today AM. Pt admits, was seen here few days ago due to same complaints " but was not bleeding at time just spotting". Denies fever, chills, N/V, UTI sx, appears in pain. Time Seen by Provider: 08/25/18 14:08 Chief Complaint (Nursing): Female Genitourinary History Per: Patient Past Medical History Reviewed: Historical Data, Nursing Documentation, Vital Signs Vital Signs: Last Vital Signs Temp 98.1 F 08/25/18 14:26 Pulse 68 08/25/18 16:47 Resp 20 08/25/18 16:47 BP 108/67 08/25/18 16:47 Pulse Ox 97 08/25/18 16:47 - Medical History PMH: Kidney Stones (Passed without intervention), Chronic Kidney Disease Denies: CAD, Cardia Arrhythmia, Cardiac Aneurysm Surgical History: Hernia Repair - [facility] Procedures MANUAL ASSIST DELIV NEC (05/23/13) Family History: States: Unknown Family Hx - Social History Hx Tobacco Use: No Hx Alcohol Use: No Hx Substance Use: No - Immunization History Hx Tetanus Toxoid Vaccination: No Hx Influenza Vaccination: No Hx Pneumococcal Vaccination: No Review Of Systems Except As Marked, All Systems Reviewed And Found Negative. Constitutional: Negative for: Fever, Chills ENT: Negative for: Throat Pain, Throat Swelling Cardiovascular: Negative for: Chest Pain Respiratory: Negative for: Cough Gastrointestinal: Positive for: Abdominal Pain. Negative for: Vomiting, Diarrhea Genitourinary: Positive for: Vaginal Bleeding. Negative for: Dysuria Musculoskeletal: Negative for: Back Pain Neurological: Negative for: Altered Mental Status Physical Exam - Physical Exam Appears: Well, Non-toxic, No Acute Distress Skin: Normal Color, Warm, Dry Eye(s): bilateral: PERRL Nose: No Flaring, No Discharge Oral Mucosa: Moist Throat: No Drooling Neck: Trachea Midline, Supple Cardiovascular: Rhythm Regular Respiratory: No Decreased Breath Sounds, No Accessory Muscle Use, No Stridor, No Wheezing Gastrointestinal/Abdominal: Soft, Tenderness (diffuse lower abdominal), No Distention, No Guarding, No Rebound Back: No CVA Tenderness Extremity: Normal ROM, No Deformity, No Swelling Neurological/Psych: Oriented x3, Normal Speech ED Course And Treatment - Laboratory Results Result Diagrams: 08/25/18 14:43 08/25/18 14:43 Lab Results: Total Bilirubin 0.5 mg/dL (0.2-1.3) 08/25/18 14:43 AST 28 U/L (14-36) 08/25/18 14:43 ALT 13 U/L (9-52) 08/25/18 14:43 Alkaline Phosphatase 64 U/L (38-126) 08/25/18 14:43 Total Protein 7.4 g/dL (6.3-8.3) 08/25/18 14:43 Albumin 4.4 g/dL (3.5-5.0) 08/25/18 14:43 Globulin 3.0 gm/dL (2.2-3.9) 08/25/18 14:43 Albumin/Globulin Ratio 1.4 (1.0-2.1) 08/25/18 14:43 Urine Color Yellow (YELLOW) 08/25/18 15:19 Urine Clarity Hazy (Clear) 08/25/18 15:19 Urine pH 6.0 (5.0-8.0) 08/25/18 15:19 Ur Specific [place] 1.027 (1.003-1.030) 08/25/18 15:19 Urine Protein Negative mg/dL (NEGATIVE) 08/25/18 15:19 Urine Glucose (UA) Normal mg/dL (Normal) 08/25/18 15:19 Urine Ketones Negative mg/dL (NEGATIVE) 08/25/18 15:19 Urine Blood 3+ (NEGATIVE) H 08/25/18 15:19 Urine Nitrate Negative (NEGATIVE) 08/25/18 15:19 Urine Bilirubin Negative (NEGATIVE) 08/25/18 15:19 Urine Urobilinogen Normal mg/dL (0.2-1.0) 08/25/18 15:19 Ur Leukocyte Esterase Neg [place]/uL (Negative) 08/25/18 15:19 Urine WBC (Auto) < 1 /hpf (0-5) 08/25/18 15:19 Urine RBC (Auto) 289 /hpf (0-3) H 08/25/18 15:19 Ur Squamous Epith Cells 3 /hpf (0-5) 08/25/18 15:19 Beta HCG, Quant 1812.70 mIU/ML 08/25/18 14:43 Lab Interpretation: No Acute Changes O2 Sat by Pulse Oximetry: 97 Pulse Ox Interpretation: Normal - CT Scan/US OB US Other Rad Studies (CT/US): Radiology Report Reviewed CT/US Interpretation: reator : Anne Villalpando MD. Dictator : Anne Villalpando MD. Associate Professor Of Medicine : Web Marketing Intern : Anne Villalpando MD. Approver2 : Report Date : 08/25/2018 16:12:12. My Comment : . Date of service: 08/25/2018. PROCEDURE: OB Pelvic Ultrasound. HISTORY: vaginal bleeding. COMPARISON: 08/23/2018. FINDINGS: UTERUS: Single intrauterine gestation. Gestational sac diameter measures 1.96 cm corresponding to 6 weeks and 3 days of gestational age. Again 2 yolk sacs are visualized measuring 2 mm each however no pole is identified on the current examination. age (Ultrasound estimated): 6 weeks and 3 days. Date of delivery (Ultrasound estimated) : 04/17/2019. Pao- gestational hemorrhage: There is a 8 x 3 x 6 mm subchorionic hemorrhage. Uterus measures 8.9 x 6.2 x 6.0 cm. There is a 1.9 x 1.8 x 2.1 cm intramural posterior wall calcified fibroid in the lower uterine segment. CERVIX: Long and closed. No cervical abnormality seen. RIGHT OVARY: Measures 2.8 x 2.1 x 2.9 cm. No mass. Normal flow. 1.4 x 1.1 x 1.4 cm cyst. LEFT OVARY: Measures 0.8 x 2.1 x 2.3 cm. No mass. Normal flow. There is a 1.7 x 1.1 x 1.4 cm corpus luteum cyst. FREE FLUID: None. OTHER FINDINGS: None. IMPRESSION: Single intrauterine gestational sac with mean gestational age of 6 weeks and 3 days. Two yolk sacs are again visualized measuring 2 mm each however no pole is identified on the current examination. Clinical and ultrasound follow-up follow-up and correlation with serial beta HCG levels is advised. Progress Note: Pt was seen by SPACE SYSTEMS OPERATIONS MANAGER , margarita recommend with outpt f/u. Pt remained stable in ED. Abd: benign, (-) guarding, (-) rebound. results review and discussed with pt, agrees with plan. Stable for discharge now. Disposition Counseled Patient/Family Regarding: Studies Performed, Diagnosis, Need For Followup, Rx Given - Disposition [facility]errals: [facility] [Outside] [facility] [Outside] Disposition: HOME/ ROUTINE Disposition Time: 18:07 Condition: STABLE Additional Instructions: Encourage fluids take medication as prescribed Follow up with SPACE SYSTEMS OPERATIONS MANAGER in 2-3 days for re-evaluation. return to Ed if any worsening or new changes, Prescriptions: Methylergonovine [Methergine] 0.2 mg PO TID #9 tab traMADol [Ultram] 50 mg PO TID #10 tab Instructions: Threatened Miscarriage, Bleeding With (DC) Forms: [facility] (Upper Sorbian), Work/School/Gym Excuse Print Language: CUBAN - Clinical Impression Clinical Impression: Threatened
--- NOTE | 2018-08-25 18:44 | C.PDOC ---
Time Seen by Provider: 08/25/18 14:08 Chief Complaint (Nursing): Female Genitourinary History Per: Patient Onset/Duration Of Symptoms: Gradual Current Symptoms Are (Timing): Still Present Severity: Mild Pain Scale Rating Of: 6 Quality Of Discomfort: Cramping, "Pain" Alleviating Factors: None Recent travel outside of the [place]: No Additional History Per: Patient Abnormal Vaginal Bleeding: Yes Last Menstral Period: 05/23/2018 : 4 Para: 3 Miscarriage: 0 Past Medical History Vital Signs: Last Vital Signs Temp 98.1 F 08/25/18 14:26 Pulse 68 08/25/18 16:47 Resp 20 08/25/18 16:47 BP 108/67 08/25/18 16:47 Pulse Ox 97 08/25/18 18:24 - Medical History PMH: No Chronic Diseases, Kidney Stones (Passed without intervention), Chronic Kidney Disease Denies: CAD, Cardia Arrhythmia, Cardiac Aneurysm Surgical History: Appendectomy, Hernia Repair - [facility] Procedures MANUAL ASSIST DELIV NEC (05/23/13) Family History: States: Unknown Family Hx - Social History Hx Tobacco Use: No Hx Alcohol Use: No Hx Substance Use: No - Immunization History Hx Tetanus Toxoid Vaccination: No Hx Influenza Vaccination: No Hx Pneumococcal Vaccination: No Review Of Systems Genitourinary: Positive for: Vaginal Bleeding, Pelvic Pain Musculoskeletal: Positive for: Back Pain Neurological: Positive for: Altered Mental Status ED Course And Treatment - Laboratory Results Result Diagrams: 08/25/18 14:43 08/25/18 14:43 Lab Results: Total Bilirubin 0.5 mg/dL (0.2-1.3) 08/25/18 14:43 AST 28 U/L (14-36) 08/25/18 14:43 ALT 13 U/L (9-52) 08/25/18 14:43 Alkaline Phosphatase 64 U/L (38-126) 08/25/18 14:43 Total Protein 7.4 g/dL (6.3-8.3) 08/25/18 14:43 Albumin 4.4 g/dL (3.5-5.0) 08/25/18 14:43 Globulin 3.0 gm/dL (2.2-3.9) 08/25/18 14:43 Albumin/Globulin Ratio 1.4 (1.0-2.1) 08/25/18 14:43 Urine Color Yellow (YELLOW) 08/25/18 15:19 Urine Clarity Hazy (Clear) 08/25/18 15:19 Urine pH 6.0 (5.0-8.0) 08/25/18 15:19 Ur Specific [place] 1.027 (1.003-1.030) 08/25/18 15:19 Urine Protein Negative mg/dL (NEGATIVE) 08/25/18 15:19 Urine Glucose (UA) Normal mg/dL (Normal) 08/25/18 15:19 Urine Ketones Negative mg/dL (NEGATIVE) 08/25/18 15:19 Urine Blood 3+ (NEGATIVE) H 08/25/18 15:19 Urine Nitrate Negative (NEGATIVE) 08/25/18 15:19 Urine Bilirubin Negative (NEGATIVE) 08/25/18 15:19 Urine Urobilinogen Normal mg/dL (0.2-1.0) 08/25/18 15:19 Ur Leukocyte Esterase Neg [place]/uL (Negative) 08/25/18 15:19 Urine WBC (Auto) < 1 /hpf (0-5) 08/25/18 15:19 Urine RBC (Auto) 289 /hpf (0-3) H 08/25/18 15:19 Ur Squamous Epith Cells 3 /hpf (0-5) 08/25/18 15:19 Beta HCG, Quant 1812.70 mIU/ML 08/25/18 14:43 Lab Interpretation: Abnormal (BHCG half down since 2 days ago) Interpretation Of Abnormal: Most Likely Missed in process of spontaneous miscarriage Urine POC: Positive O2 Sat by Pulse Oximetry: 97 - CT Scan/US OB US Other Rad Studies (CT/US): Read By Radiologist Progress Note: Called to see patient with vaginal bleeding, BHCG dropping and only GS in uterus without pole. Most likely Missed in progress Disposition Counseled Patient/Family Regarding: Need For Followup - Disposition [facility]errals[facility]Outside[facility]] Disposition: HOME/ ROUTINE Condition: STABLE Additional Instructions: Encourage fluids take medication as prescribed Follow up with DEVELOPER ARCHITECT in 2-3 days for re-evaluation. return to Ed if any worsening or new changes, Prescriptions: Methylergonovine [Methergine] 0.2 mg PO TID #9 tab traMADol [Ultram] 50 mg PO TID #10 tab Instructions: Threatened Miscarriage, Bleeding With (DC) Forms: Work/School/Gym Excuse, [facility] (Albanian) Print Language: RUSSIAN - Clinical Impression Clinical Impression: Threatened
== END 2018-08-25 18:26 | disposition home or self-care (01) ==
LOC: C.ER 13:48
DX: O20.0 Threatened abortion (principal); Z3A.01 Less than 8 weeks gestation of pregnancy

== ENCOUNTER 2018-09-08 13:19 | Emergency (ER) | payer OTHER ==
[2018-09-08 13:20] VITALS: BMI 29.7
[2018-09-08 13:42] VITALS: RESP 18
--- NOTE | 2018-09-08 14:54 | C.PDOC ---
History Of Present Illness 43 y/o female pt presents to the ER vaginal bleeding for x2 weeks s/p miscarriage. Associated sx includes groin pain, breast pain, back pain, vomiting and diarrhea for x3 days. Pt reports she went to OBGYN x1 week ago and was told everything was fine. During miscarriage, pt noted clots, but is unsure whether it was fully clean. Pt was given medication from OBGYN and has completed the medication. Pt only notices blood when urinating. Blood is sometimes dark and sometimes bright red. Pt denies dysuria, chest pain and SOB. Time Seen by Provider: 09/08/18 13:58 Chief Complaint (Nursing): Abdominal Pain History Per: Patient History/Exam Limitations: no limitations Onset/Duration Of Symptoms: Days (x2 weeks) Current Symptoms Are (Timing): Still Present Past Medical History Reviewed: Historical Data, Nursing Documentation, Vital Signs Vital Signs: Last Vital Signs Temp 98.2 F 09/08/18 13:39 Pulse 69 09/08/18 13:39 Resp 18 09/08/18 13:39 BP 100/65 09/08/18 13:39 Pulse Ox 97 09/08/18 13:39 - Medical History PMH: Kidney Stones (Passed without intervention), Chronic Kidney Disease Surgical History: Appendectomy, Hernia Repair - [facility] Procedures MANUAL ASSIST KRISTINE NEC (05/23/13) Family History: States: Unknown Family Hx - Social History Hx Tobacco Use: No Hx Alcohol Use: No Hx Substance Use: No - Immunization History Hx Tetanus Toxoid Vaccination: No Hx Influenza Vaccination: No Hx Pneumococcal Vaccination: No Review Of Systems Cardiovascular: Negative for: Chest Pain Respiratory: Negative for: Shortness of Breath Gastrointestinal: Positive for: Vomiting, Diarrhea Genitourinary: Positive for: Vaginal Bleeding. Negative for: Dysuria Musculoskeletal: Positive for: Back Pain, Other (groin pain; breast pain ) Physical Exam - Physical Exam Appears: Non-toxic, No Acute Distress Skin: Warm, Dry Head: Normacephalic Eye(s): bilateral: Normal Inspection Chest: Symmetrical, Other (tender to palpate breast ) Cardiovascular: Rhythm Regular Respiratory: Normal Breath Sounds, No Accessory Muscle Use Gastrointestinal/Abdominal: Soft, Tenderness (suprapubic and pelvic ), No Distention, No Guarding, No Rebound Back: No CVA Tenderness Extremity: Normal ROM (x4), No Pedal Edema, No Deformity, No Swelling Neurological/Psych: Oriented x3, Normal Speech ED Course And Treatment - Laboratory Results Result Diagrams: 09/08/18 14:54 09/08/18 14:54 O2 Sat by Pulse Oximetry: 97 (RA) Pulse Ox Interpretation: Normal - CT Scan/US Transvaginal US Other Rad Studies (CT/US): Read By Radiologist, Radiology Report Reviewed CT/US Interpretation: Accession No. : [id number]. Patient Name / ID : SILVESTRE CULLEN / [id number]. Exam Date : 09/08/2018 15:31:56 ( Approved ). Study Comment : Sex / Age : F / 43Y. Creator : Koko Shah MD. Dictator : Koko Shah MD. Escrow Manager : Vp Production : Koko Shah MD. Approver2 : Report Date : 09/08/2018 16:04:08. My Comment : * . Date of service: 09/08/2018. HISTORY: vaginal bleeding/ missed . COMPARISON: None available. TECHNIQUE: Transabdominal and transvaginal. FINDINGS: UTERUS: Measures 9.8 x 5.3 x 5.7 cm. There is an anterior subserosal uterine fibroid with peripheral calcification, measuring 1.8 x 2.1 x 2.3 cm. No other mass is identified. The uterus is retroverted. ENDOMETRIUM: Measures 18 mm in diameter. Unremarkable. CERVIX: No cervical abnormality identified. RIGHT OVARY: Measures 2.5 x 2.5 x 2.8 cm. No solid mass. Normal flow. Simple cyst, 1.9 x 1.9 x 2.0 cm. LEFT OVARY: Measures 1.9 x 2.3 x 2.4 cm. No solid mass. Normal flow. FREE FLUID: No significant free fluid noted. OTHER FINDINGS: None. IMPRESSION: 2.3 cm anterior sub serosal uterine fibroid with peripheral calcification. Incidental 2 cm simple right ovarian cyst. No intrauterine gestation identified. Otherwise unremarkable. CT abd and pelvis Other Rad Studies (CT/US): Read By Radiologist, Radiology Report Reviewed CT/US Interpretation: Name:ALYSE YOUNG Exam Date:Sep 08, 2018 8:04:42 PM EDT. Modality Type:CT. Description:CT - ABDOMEN AND PELVIS. Gender:F Laterality:Not applicable. :75 Referring Physician:Jareth Avina. EXAM: CT Abdomen and Pelvis with IV and oral contrast age. CLINICAL HISTORY: Abd pain. TECHNIQUE: Axial computed tomography images of the abdomen and pelvis with intravenous contrast. 0.00 mGy-cm. CONTRAST: With; OMNI 240 & 100MLS VISI 320. COMPARISON: None provided. FINDINGS: LUNG BASES: The lung bases appear clear. No pleural effusions are seen. LIVER: Unremarkable. GALLBLADDER AND BILE DUCTS: The gallbladder appears within normal limits. No radioopaque gallstones are seen. No biliary ductal dilatation is evident. PANCREAS: Unremarkable. SPLEEN: Unremarkable. ADRENAL GLANDS: Unremarkable. KIDNEYS, URETERS, AND BLADDER: The kidneys appear within normal limits. There is no hydronephrosis or hydroureter. No urinary calculi are seen. The urinary bladder appeared normal in size and configuration. STOMACH AND BOWEL: Unremarkable appearance of the s tomach. Diffuse enterocolitis is noted involving all small and large bowel segments. No evidence of bowel obstruction. No evidence suggesting enteritis or colitis. APPENDIX: No evidence of acute appendicitis on CT examination. PERITONEUM: No free fluid. No free air. LYMPH NODES: No lymphadenopathy is evident. REPRODUCTIVE: A 2.8 x 2.5 cm hypodense lesion seen in the right adnexal region thought compatible with a right ovarian cyst. Consideration could be given to correlation with TV pelvic ultrasound for further characterization. A 2.5 cm mottled calcification is seen in the right anterior uterine body compatible with a calcified degenerating uterine fibroid. VASCULATURE: No evidence of abdominal aortic aneurysm. BONES: No aggressive appearing osseous lesion. No acute osseous pathology evident. IMPRESSION: 1. 2.8 cm right ovarian cyst. 2. 2.5 cm calcified degenerating uterine fibroid in the right uterine body. 3. Diffuse enterocolitis. . Electronically signed on Sep 08, 2018 9:04:14 PM EDT by: Jeff Zhou M.D., ZULLY Certified By ABR & CBCCT. Fellowship Trained MRI and CT Specialist. Medical Decision Making Medical Decision Making: plans: -- chem labs -- blood work -- pelvis US -- pepcid -- IV fluids Patient verbalizes understanding and is in agreement with plan. Patient is stable for discharge. Disposition Counseled Patient/Family Regarding: Studies Performed, Diagnosis, Need For Followup, Rx Given - Disposition Referrals: [facility] [Outside] Disposition: HOME/ ROUTINE Disposition Time: 21:30 Condition: IMPROVED Additional Instructions: Please review handouts given for Colitis, Diarrhea,and Nausea/Vomiting Take medications as instructed Take otc Tylenol as needed for pain Rest and hydration is very important [place] diet/ BRAT (bananas, rice, apples, toast) diet Follow up with PMD in 1-2 days re: colitis Also Follow up with [employer] [facility] re: right ovarian cyst and fibroids Return to ED if symptoms worsen Prescriptions: Ciprofloxacin [Cipro] 500 mg PO BID 5 Days #9 tab metroNIDAZOLE [Flagyl] 500 mg PO TID #29 tab Instructions: Diarrhea and Traveler's Diarrhea, Adult (DC), Nausea and Vomiting, Adult (DC), Colitis (DC) Forms: [facility] (Citizen Of [place]), Work Excuse Print Language: GEORGIAN - Clinical Impression Clinical Impression: Diarrhea, Abdominal pain, Enterocolitis - PA / TAX MAP TECHNICIAN / Resident Statement MD/ has reviewed & agrees with the documentation as recorded. - Scribe Statement The provider has reviewed the documentation as recorded by the Micah Qureshi Do All medical record entries made by the Scribe were at my direction and personally dictated by me. I have reviewed the chart and agree that the record accurately reflects my personal performance of the history, physical exam, medical decision making, and the department course for this patient. I have also personally directed, reviewed, and agree with the discharge instructions and disposition.
[2018-09-08 15:02] LABS: BASO % 0.4 % (0.0-2.0); EOS # 0.1 K/uL (0.0-0.7); EOS % 1.8 % (0.0-4.0); HEMOGLOBIN 11.8 g/dL (11.0-16.0); LYMPH % 13.1 % (20.0-40.0); MEAN CELL VOLUME 88.9 fL (81.0-99.0); MEAN CORPUSCULAR HEMOGLOBIN 30.3 pg (27.0-31.0); MEAN CORPUSCULAR HGB CONC 34.1 g/dL (33.0-37.0); MEAN PLATELET VOLUME 9.7 fL (7.2-11.7); MONO # 0.4 K/uL (0.0-0.8); MONO % 5.3 % (0.0-10.0); NEUT # 5.9 K/uL (1.8-7.0); NEUT % 79.4 % (50.0-75.0); RBC 3.89 Mil/uL (3.80-5.20); RED CELL DISTRIBUTION WIDTH 13.4 % (11.5-14.5); WHITE BLOOD COUNT 7.5 K/uL (4.8-10.8)
[2018-09-08 15:09] LABS: INR 1.1
[2018-09-08 15:17] LABS: ALB/GLOB RATIO 1.5 (1.0-2.1); ALBUMIN 4.2 g/dL (3.5-5.0); ALT/SGPT 17 U/L (9-52); AST/SGOT 23 U/L (14-36); BLOOD UREA NITROGEN 8 mg/dL (7-17); CALCIUM 8.4 mg/dl (8.6-10.4); GFR NON-AFRICAN AMERICAN > 60
[2018-09-08] MEDS ORDERED: Morphine 4 MG/ML VIAL IV ONE (15:34)
[2018-09-08] MEDS ORDERED: Sodium Chloride 0.9% 500 ML IV ONE (15:44)
--- NOTE | 2018-09-08 16:07 | US ---
Date of service: 09/08/2018 HISTORY: vaginal bleeding/ missed COMPARISON: None available. TECHNIQUE: Transabdominal and transvaginal FINDINGS: UTERUS: Measures 9.8 x 5.3 x 5.7 cm. There is an anterior subserosal uterine fibroid with peripheral calcification, measuring 1.8 x 2.1 x 2.3 cm. No other mass is identified. The uterus is retroverted. ENDOMETRIUM: Measures 18 mm in diameter. Unremarkable. CERVIX: No cervical abnormality identified. RIGHT OVARY: Measures 2.5 x 2.5 x 2.8 cm. No solid mass. Normal flow. Simple cyst, 1.9 x 1.9 x 2.0 cm. LEFT OVARY: Measures 1.9 x 2.3 x 2.4 cm. No solid mass. Normal flow. FREE FLUID: No significant free fluid noted. OTHER FINDINGS: None. IMPRESSION: 2.3 cm anterior sub serosal uterine fibroid with peripheral calcification. Incidental 2 cm simple right ovarian cyst. No intrauterine gestation identified. Otherwise unremarkable.
[2018-09-08] MEDS ORDERED: Sodium Chloride 0.9% 1,000 ML ONE (16:10)
[2018-09-08 17:03] LABS: URINE BILIRUBIN NEGATIVE (NEGATIVE); URINE BLOOD 3+ (NEGATIVE); URINE CLARITY Hazy (Clear); URINE COLOR Yellow (YELLOW); URINE GLUCOSE (UA) NORMAL (Normal); URINE LEUKOCYTE ESTERASE 2+ Leu/uL (Negative); URINE PROTEIN NEGATIVE (NEGATIVE); URINE UROBILINOGEN NORMAL mg/dL (0.2-1.0)
[2018-09-08 17:05] LABS: HCG,QUALITATIVE URINE NEGATIVE (NEGATIVE)
[2018-09-08] MEDS ORDERED: Iohexol 240 (50 ml) PO ONE (17:12)
[2018-09-08] MEDS ORDERED: Iohexol 240 (50 ml) ONE (17:33)
[2018-09-08] MEDS ORDERED: Iodixanol 320 MG/ML 100 ML BOTTLE IV ONE (19:02)
[2018-09-08 20:46] VITALS: BP 116/68; PULSE 66; TEMP 98.7
[2018-09-08 21:05] VITALS: O2SAT 97
--- NOTE | 2018-09-08 22:07 | CT ---
Date of service: 09/08/2018 PROCEDURE: CT Abdomen and Pelvis with contrast HISTORY: abd pain right> left COMPARISON: Comparison is made with 05/03/2018 TECHNIQUE: Contrast dose: 100 mL of Visipaque 320 intravenously. Axial and reformatted coronal and sagittal CT images of the abdomen and pelvis were obtained after IV and oral contrast administration. Radiation dose: Total exam DLP = 896.33 mGy-cm. This CT exam was performed using one or more of the following dose reduction techniques: Automated exposure control, adjustment of the mA and/or kV according to patient size, and/or use of iterative reconstruction technique. FINDINGS: LOWER THORAX: No evidence of acute pathology or pleural effusion. LIVER: Mild hepatic steatosis is noted. GALLBLADDER AND BILE DUCTS: Unremarkable. PANCREAS: Unremarkable. No gross lesion or ductal dilatation. SPLEEN: Unremarkable. ADRENALS: Unremarkable. No mass. KIDNEYS AND URETERS: Unremarkable. No hydronephrosis. No solid mass. VASCULATURE: Unremarkable. No aortic aneurysm. No aortic atherosclerotic calcification or mural plaque present. BOWEL: There is diffuse thickening of the gastric and small bowel wall suggestive of gastroenteritis. No evidence of high-grade bowel obstruction. APPENDIX: Normal appendix. PERITONEUM: Unremarkable. No free fluid. No free air. LYMPH NODES: Unremarkable. No enlarged lymph nodes. BLADDER: Unremarkable. REPRODUCTIVE: There is 2.8 centimeter right ovarian/adnexal cyst. Again noted is calcified fibroid at the right aspect of the uterus. BONES: No acute fracture. OTHER FINDINGS: None. IMPRESSION: Suspicious for gastroenteritis. 2.8 centimeter right adnexal cyst. If indicated further assessment by ultrasound of the pelvis may be obtained. Otherwise no significant interval changes noted since the prior study. Preliminary report was submitted by [facility] contains concordant findings.
== END 2018-09-08 21:40 | disposition home or self-care (01) ==
LOC: C.ER 13:19
DX: K52.9 Noninfective gastroenteritis and colitis, unspecified (principal)
CPT/HCPCS: 74177; 76830; 76856; 80053; 81001; 84702; 84703; 85025; 85610; 85730; 96361; 96374; 96375; 99285; J2270; J2765; J7040; Q9966; Q9967